=== PATIENT | female | born 1930 | race Caucasian/White ===

== ENCOUNTER 2018-01-03 14:46 | Outpatient (CLI) | payer MEDICARE, OTHER | END 2018-01-03 14:47 | disposition home or self-care (01) | LOC: BICRAD 14:46 | PROVIDERS: ATTEND Physical Medicine & Rehabilitation | DX: M25.511 Pain in right shoulder (principal); M19.011 Primary osteoarthritis, right shoulder ==

== ENCOUNTER 2019-09-26 13:06 | Inpatient (IN) | payer MEDICARE, OTHER ==
[2019-09-26 13:43] LABS: #Eosinphils 0.3 thou/uL (0.0-0.7); #Lymphocytes 1.3 thou/uL (1.20-3.40); #Monocytes 0.6 thou/uL (0.11-0.59); #Neutrophils 4.5 thou/uL (1.40-6.50); %Basophils 0.3 % (0.0-1.0); %Eosinophils 3.9 % (0.0-10.0); %Monocytes 8.6 % (0.0-10.0); %Neutrophils 67.3 % (42.0-75.0); Hemoglobin 9.5 g/dL (12.0-16.0); Mean Corpuscular HGB CONC 32.6 g/dL (32.0-36.0); Mean Corpuscular Hemoglobin 30.1 pg (27.0-31.0); Mean Corpuscular Volume 92.3 fL (78.0-98.0); Mean Platelet Volume 9.4 fL (7.4-10.4); Platelet Count 207 thou/uL (130-400); RBC Distribution Width 12.6 % (11.5-14.5); Red Blood Cell (RBC) Count 3.16 mill/uL (4.20-5.40); White Blood Cell (WBC) Count 6.6 thou/uL (4.8-10.8)
[2019-09-26] MEDS ORDERED: Ondansetron PF 4 MG/2 ML Vial ONE (14:06)
[2019-09-26 14:16] LABS: ALT (SGPT) 18 U/L (8-55); AST (SGOT) 24 U/L (5-34); Albumin 3.9 g/dL (3.4-4.8); Alkaline Phosphatase 72 U/L (40-110); Anion Gap 14 mmol/L (10-20); BUN (Urea Nitrogen) 36 mg/dL (9.8-20.1); Bilirubin, Total 0.3 mg/dL (0.2-1.2); Calc. Creatinine Clearance 0 mL/min (70-130); Calcium 9.1 mg/dL (7.8-10.44); Carbon Dioxide 21 mmol/L (23-31); Chloride 100 mmol/L (98-107); Estimated GFR-MDRD 27; Globulin 3.2 g/dL (2.4-3.5); Glucose 108 mg/dL (83-110); Potassium 4.5 mmol/L (3.5-5.1); Protein, Total 7.1 g/dL (6.0-8.3); Sodium 130 mmol/L (136-145)
--- NOTE | 2019-09-26 14:26 | RAD ---
EXAM: XR Chest 1 View Portable PROVIDED CLINICAL HISTORY: Shortness of breath COMPARISON: 07/15/2015 FINDINGS: Cardiac silhouette appears enlarged. There is obscuration of the left hemidiaphragm and blunting of t he left costophrenic angle. Right lung appears clear. There is no evidence for pneumothorax. IMPRESSION: Left basilar pleural and/or parenchymal opacity. Correlate with concerns for pneumonia. Follow-up rec ommended.
[2019-09-26] MEDS ORDERED: Metoclopramide HCl 10 MG/2 ML VIAL ONE (14:45)
[2019-09-26] MEDS ORDERED: Furosemide 40 MG/4 ML VIAL ONE (14:50)
[2019-09-26] MEDS ORDERED: Furosemide 20 MG/2 ML VIAL SLOW IVP SCH (20:30)
[2019-09-26 21:45] LABS: Troponin I 0.196 ng/mL (< 0.028)
[2019-09-26] MEDS: Zolpidem Tartrate 5 MG TAB PO PRN (21:49)
[2019-09-26] MEDS: Triple Antibiotic Oint 1 GM Packet TOP SCH (21:49)
[2019-09-26] MEDS: Carvedilol 25 MG TAB PO SCH (21:49)
[2019-09-27 00:22] VITALS: BMI 27.8
--- NOTE | 2019-09-27 02:17 | HP ---
CHIEF COMPLAINT: Exacerbation of CHF. 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 She noticed since that surgery that she has begun to have swelling in her lower extremities. 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 However, it was not until the 3rd day when her shoes did not fit and she began to consider doubling her furosemide. By then, it was too late. She began to become dyspneic and came to the emergency room for further evaluation. In the ER, chest x-ray showed an early pleural effusion. Also, her BNP was elevated at 1100. Diuresis began in the emergency room and Dr. Mitchell was called to place her on further diuresis and re-evaluation. PAST MEDICAL HISTORY: As mentioned, she recently underwent squamous cell surgery on her left cheek. She has a history of CHF for which she sees Dr. Felder. She also has a history of dyslipidemia, spinal stenosis, hypertension, medical noncompliance, renal insufficiency due to uncontrolled blood pressure, vitamin D deficiency, hypothyroidism, history right CVA, GERD, chronic cystitis based on recurrent episodes of dehydration. PAST SURGICAL HISTORY: Includes an appendectomy, recent squamous cell skin cancer removal, left cheek. PSYCHIATRIC HISTORY: Negative for depression, suicidal ideation. SOCIAL HISTORY: She is . Denies any smoking, drug use, or alcohol use. She lives alone at home. ALLERGIES: TO SULFA. MEDICATION ON ADMISSION: Includes: 1. Aspirin 81 mg daily. 2. Atorvastatin 10 mg nightly. 3. Levothyroxine 88 mcg daily. 4. Carvedilol 12 mg b.i.d. 5. Vitamin D 4000 IUs daily. 6. Nexium 20 mg daily. 7. She takes Xarelto 15 mg daily. 8. Nitrofurantoin 100 mg daily. 9. Furosemide 20 mg daily, which she is told to double when she has edema. REVIEW OF SYSTEMS: At the time of admission: CONSTITUTIONAL: Denies fever, chills, nausea, vomiting, diarrhea, fatigue or malaise. HEENT: Denies drainage from eyes, ears, nose or throat. CHEST: Admits to shortness of breath with cough. CARDIOVASCULAR: Denies chest pain or palpitations at this time. GI: Denies nausea, vomiting or diarrhea. : Denies dysuria or blood in urine or stool. MUSCULOSKELETAL: Denies any new aches or pains in the major muscle groups or major joints. SKIN: No new lesions aside from the large area of ecchymosis in her postop site from the Xarelto. PSYCHIATRIC: Denies any anxiety, depression at this time. She does admit to some insomnia. ENDOCRINE: She has swelling in the lower extremities, but denies any depression or lymphadenopathy. PHYSICAL EXAMINATION: VITAL SIGNS: Blood pressure 189/78, O2 saturation 100% on 2 L, pain scale 0/10, temperature 98.7, pulse 70, respirations 25 per minute. GENERAL: This is a obese, female, alert, oriented, cooperative with obvious bruising to the left cheek. HEENT: Normocephalic. TMs, nares, and pharynx are clear. The left ocular bridge is nearly swollen shut due to ecchymosis and edema postop. NECK: Supple. Trachea midline. No bruits, no mass. CHEST: With basilar rales, left greater than right. HEART: Regular rate and rhythm. BREAST: Deferred. ABDOMEN: Soft, nontender without hepatosplenomegaly. : Deferred. EXTREMITIES: With 2+ edema in the lower extremities. SKIN: With the aforementioned bruising in the left cheek, otherwise no acute rashes or lesions. NEUROLOGIC: Cranial nerves are intact. Gait and cerebral function are untested. Sensory exam is grossly intact. Reflexes 2+ at knee jerks, Babinski is down. LABORATORY DATA: Sodium 130, potassium 4.5, chloride 100, CO2 21, BUN 36, creatinine 1.7 with GFR 27, glucose 108, calcium 9.6. Liver functions unremarkable. Troponin slightly elevated at 0.07. BNP elevated at 1149.6, WBC 6.6, hemoglobin 9.5, hematocrit 29.2, platelets at 207. TSH is pending. The chest x-ray showed early pleural effusion in the left basilar side. ASSESSMENT: 1. Exacerbation of congestive heart failure. 2. Hypertension. 3. Postoperative left squamous cell removal. 4. Medical noncompliance. 5. Renal insufficiency. PLAN: 1. Continue diuresis, re-evaluate thyroid status. 2. Consultation with Dr. Felder. The patient has recently had an echocardiogram at his office that will not be repeated at this time, serial re-evaluation and serial weight checks. Job ID: [id number] [facility]
[2019-09-27 05:40] LABS: #Eosinphils 0.1 thou/uL (0.0-0.7); #Lymphocytes 1.9 thou/uL (1.20-3.40); #Monocytes 0.9 thou/uL (0.11-0.59); #Neutrophils 4.1 thou/uL (1.40-6.50); %Basophils 0.2 % (0.0-1.0); %Eosinophils 0.8 % (0.0-10.0); %Lymphocytes 26.8 % (21.0-51.0); %Neutrophils 59.2 % (42.0-75.0); Hemoglobin 8.8 g/dL (12.0-16.0); Mean Corpuscular HGB CONC 32.6 g/dL (32.0-36.0); Mean Platelet Volume 9.1 fL (7.4-10.4); Platelet Count 182 thou/uL (130-400); RBC Distribution Width 12.7 % (11.5-14.5); Red Blood Cell (RBC) Count 2.93 mill/uL (4.20-5.40)
[2019-09-27 06:04] LABS: Anion Gap 14 mmol/L (10-20); BUN (Urea Nitrogen) 36 mg/dL (9.8-20.1); Calc. Creatinine Clearance 29 mL/min (70-130); Carbon Dioxide 22 mmol/L (23-31); Cardiac Risk 2.7 (Less than 4.5); Chloride 101 mmol/L (98-107); Cholesterol 111 mg/dl (< 200 Desired); Estimated GFR-MDRD 28; Glucose 81 mg/dL (83-110); HDL Cholesterol 41 mg/dL (>60 Neg Risk); LDL Cholesterol, Calculated 56 mg/dL; Sodium 133 mmol/L (136-145); Triglycerides 68 mg/dL (Less than 150)
--- NOTE | 2019-09-27 07:56 | RAD ---
EXAM: CHEST ONE VIEW HISTORY: CHF exacerbation COMPARISON: 09/26/2019 FINDINGS: Cardiac silhouette remains enlarged. Again, there is obscuration of the left hemidiaphragm and blunti ng of the left lateral costophrenic angle which may represent left pleural and/or parenchymal opacity. This may related to left pleural effusion and atelectasis, but pneumonia at the left lung ba se is a possibility as well. Slight blunting right lateral costophrenic angle is present. Pulmonary vasculature is within normal limits. Chest is overall similar to prior exam. IMPRESSION: 1. Stable chest with left basilar pleural and parenchymal opacity which may represent left pleural ef fusion and atelectasis. However, pneumonia at the left lung base is a possibility. Follow-up recommended. 2. Small right pleural effusion. 3. Cardiomegaly.
--- NOTE | 2019-09-27 08:54 | CON ---
DATE OF CONSULTATION: 09/26/2019 REASON FOR CONSULTATION: Jbtei-uk-magywgy systolic heart failure. CONSULTING PHYSICIAN: Luigi Mitchell MD HISTORY OF PRESENT ILLNESS: Chase is an 89-year-old woman with past history of cardiomyopathy who recently presented with acute onset shortness of breath. States it occurred over the last several days. She recently had squamous cell removal from the left side of her face. She denies chest pain, pressure, or associated symptoms. She states this morning after receiving IV Lasix, she feels much better. PAST MEDICAL HISTORY: Hypertension, hypothyroidism, cystitis with hematuria, hyperlipidemia, chronic sinusitis, gout, chronic kidney disease, chronic atrial fibrillation, diabetes mellitus, surgery as above, appendectomy. FAMILY HISTORY: Negative. SOCIAL HISTORY: No current tobacco or alcohol use. ALLERGIES: NONE. REVIEW OF SYSTEMS: A 10-point review of systems is reviewed as above, otherwise negative. PHYSICAL EXAMINATION: GENERAL: Patient is a pleasant woman who is in no acute distress. The patient appears her stated age. VITAL SIGNS: Blood pressure 142/65, pulse 62, temperature 98.2. NEUROLOGIC: The patient is alert and oriented x3 with no focal neurologic deficits. HEENT: Sclerae without icterus. Mouth has moist mucous membranes with normal pallor. NECK: No JVD. Carotid upstroke brisk. No bruits bilaterally. LUNGS: Clear to auscultation with unlabored respirations. BACK: No scoliosis or kyphosis. CARDIAC: Irregularly irregular. ABDOMEN: Soft, nontender, nondistended. No peritoneal signs present. No hepatosplenomegaly. No abnormal striae. EXTREMITIES: 2+ femoral and 2+ dorsalis pedis pulses. No cyanosis, clubbing, or edema. SKIN: No gross abnormalities. PERTINENT LABORATORY DATA: Hemoglobin 8.8. Creatinine 1.73, sodium 133. Troponin 0.196. BNP of 2592. Most recent echo Doppler dated 08/06/2019 with LVEF 30% to 35%, diastolic dysfunction, aortic valve sclerosis, [id number] AI, moderate MR. IMPRESSION: 1. Trbjj-ew-ohnrpww systolic heart failure. 2. Atrial fibrillation. 3. Diabetes mellitus. 4. Hypertension. RECOMMENDATIONS: It appears Ms. Stone became fluid overloaded. She did have increased weight noted. At this point, we will continue current therapy. Continue low-dose Xarelto for atrial fibrillation. She has received IV Lasix and appears to have marked improvement. We would also continue carvedilol and atorvastatin. She was wearing a LifeVest for LVEF 30% to 35%. She has returned the LifeVest. She is not interested in pursuing more aggressive treatment and not interested in pursuing continued LifeVest. She will prior need to be in the hospital for another 1 to 2 days that she diuresis. RIAZ inhibitor therapy and ARB are contraindicated due to renal insufficiency. Job ID: [id number]
[2019-09-27 08:55] LABS: Hemoglobin 8.8 g/dL (12.0-16.0); Mean Corpuscular HGB CONC 32.7 g/dL (32.0-36.0); Mean Corpuscular Hemoglobin 30.1 pg (27.0-31.0); Mean Corpuscular Volume 92.1 fL (78.0-98.0); Mean Platelet Volume 8.8 fL (7.4-10.4); Platelet Count 192 thou/uL (130-400); RBC Distribution Width 12.7 % (11.5-14.5); Red Blood Cell (RBC) Count 2.92 mill/uL (4.20-5.40); White Blood Cell (WBC) Count 8.3 thou/uL (4.8-10.8)
[2019-09-27] MEDS ORDERED: Atorvastatin Calcium 10 MG TAB PO SCH (09:00)
[2019-09-27 09:16] LABS: Anion Gap 14 mmol/L (10-20); BUN (Urea Nitrogen) 39 mg/dL (9.8-20.1); Calc. Creatinine Clearance 26 mL/min (70-130); Calcium 8.9 mg/dL (7.8-10.44); Carbon Dioxide 24 mmol/L (23-31); Chloride 100 mmol/L (98-107); Estimated GFR-MDRD 24; Glucose 134 mg/dL (83-110); Sodium 134 mmol/L (136-145)
[2019-09-27] MEDS: Levothyroxine Sodium 88 MCG TAB PO SCH (09:19)
[2019-09-27] MEDS: Carvedilol 25 MG TAB PO SCH (09:20)
[2019-09-27] MEDS: Metolazone 5 MG TAB PO SCH (09:20)
[2019-09-27] MEDS: Nitrofurantoin Monohyd/M-Cryst 100 MG CAP PO SCH (09:20)
[2019-09-27] MEDS: Aspirin Chewable 81 MG TAB PO SCH (09:22)
[2019-09-27] MEDS: Triple Antibiotic Oint 1 GM Packet TOP SCH ×2 (09:24→21:34)
[2019-09-27] MEDS: Rivaroxaban 15 MG TAB PO SCH (17:41)
[2019-09-27] MEDS: Zolpidem Tartrate 5 MG TAB PO PRN (21:34)
[2019-09-27] MEDS: Atorvastatin Calcium 10 MG TAB PO SCH (21:34)
[2019-09-28 05:13] LABS: #Eosinphils 0.4 thou/uL (0.0-0.7); #Lymphocytes 1.8 thou/uL (1.20-3.40); #Neutrophils 4.3 thou/uL (1.40-6.50); %Basophils 0.3 % (0.0-1.0); %Lymphocytes 24.5 % (21.0-51.0); %Monocytes 12.7 % (0.0-10.0); %Neutrophils 57.6 % (42.0-75.0); Hemoglobin 8.3 g/dL (12.0-16.0); Mean Corpuscular HGB CONC 31.5 g/dL (32.0-36.0); Mean Corpuscular Hemoglobin 29.5 pg (27.0-31.0); Mean Corpuscular Volume 93.4 fL (78.0-98.0); Mean Platelet Volume 8.8 fL (7.4-10.4); Platelet Count 172 thou/uL (130-400); RBC Distribution Width 12.7 % (11.5-14.5); Red Blood Cell (RBC) Count 2.82 mill/uL (4.20-5.40); White Blood Cell (WBC) Count 7.5 thou/uL (4.8-10.8)
[2019-09-28 05:34] LABS: Anion Gap 11 mmol/L (10-20); BUN (Urea Nitrogen) 44 mg/dL (9.8-20.1); Calc. Creatinine Clearance 23 mL/min (70-130); Calcium 8.8 mg/dL (7.8-10.44); Carbon Dioxide 26 mmol/L (23-31); Chloride 99 mmol/L (98-107); Estimated GFR-MDRD 22; Glucose 94 mg/dL (83-110); Potassium 4.1 mmol/L (3.5-5.1); Sodium 132 mmol/L (136-145)
[2019-09-28] MEDS ORDERED: Carvedilol 25 MG TAB PO SCH (09:00)
[2019-09-28] MEDS: Levothyroxine Sodium 88 MCG TAB PO SCH (09:03)
[2019-09-28] MEDS: Metolazone 5 MG TAB PO SCH (09:04)
[2019-09-28] MEDS: Nitrofurantoin Monohyd/M-Cryst 100 MG CAP PO SCH (09:07)
[2019-09-28] MEDS: Aspirin Chewable 81 MG TAB PO SCH (09:07)
[2019-09-28] MEDS: Triple Antibiotic Oint 1 GM Packet TOP SCH ×2 (09:16→20:47)
[2019-09-28] MEDS ORDERED: Carvedilol 3.125 MG TAB PO SCH (11:30)
[2019-09-28] MEDS ORDERED: Furosemide 40 MG/4 ML VIAL IVP SCH (13:30)
--- NOTE | 2019-09-28 14:09 | PRG ---
DATE OF SERVICE: 09/28/2019 SUBJECTIVE: Ms. Stone is doing better. She has less shortness of breath. Her hemoglobin did decrease slightly. OBJECTIVE: GENERAL: Patient is a pleasant lady who is in no acute distress. The patient appears their stated age. VITAL SIGNS: Blood pressure 180/78, pulse 66, and temperature 98.1. NEUROLOGIC: The patient is alert and oriented x3 with no focal neurologic deficits. HEENT: Sclerae without icterus. Mouth has moist mucous membranes with normal pallor. NECK: No JVD. Carotid upstroke brisk. No bruits bilaterally. LUNGS: Crackles noted bilaterally at bases. BACK: No scoliosis or kyphosis. CARDIAC: Irregularly irregular. ABDOMEN: Soft, nontender, nondistended. No peritoneal signs present. No hepatosplenomegaly. No abnormal striae. EXTREMITIES: 2+ femoral and 2+ dorsalis pedis pulses. No cyanosis, clubbing, or edema. SKIN: No gross abnormalities. PERTINENT LABORATORY DATA: Hemoglobin 8.3. Creatinine 2.13 up from 1.96. IMPRESSION: 1. Mugxv-jm-ifwndmx systolic heart failure. 2. Chronic anemia. 3. Chronic renal insufficiency. RECOMMENDATIONS: Again, I discussed goals with Ms. Stone as well as her daughter, Susanna, on aggressive versus conservative therapy. We have all agreed to proceed with a more conservative approach given her anemia, renal insufficiency, advanced age, and cardiomyopathy. Would continue with diuresis, keeping a close eye on her creatinine. Her anemia is likely related to chronic kidney disease and not from an acute blood loss. Would recommend guaiac in her stools. Would continue atorvastatin. I have decreased her carvedilol from 25 b.i.d. to 3.125 b.i.d. due to episodes of bradycardia. We will titrate up if needed. May consider changing a Lasix to p.o. tomorrow. Discontinue metolazone in place of Lasix for now. Avoid RIAZ inhibitor therapy and ARB due to renal insufficiency. Continue Xarelto. Job ID: [id number]
[2019-09-28] MEDS: Rivaroxaban 15 MG TAB PO SCH (16:06)
[2019-09-28] MEDS: Carvedilol 3.125 MG TAB PO SCH (16:06)
[2019-09-28] MEDS ORDERED: Amlodipine 5 MG TAB PO SCH (19:45)
[2019-09-28] MEDS: Atorvastatin Calcium 10 MG TAB PO SCH (20:47)
[2019-09-28] MEDS: Zolpidem Tartrate 5 MG TAB PO PRN (21:41)
[2019-09-29 04:37] LABS: #Basophils 0.1 thou/uL (0.0-0.2); #Eosinphils 0.3 thou/uL (0.0-0.7); #Lymphocytes 1.7 thou/uL (1.20-3.40); #Neutrophils 4.3 thou/uL (1.40-6.50); %Basophils 0.9 % (0.0-1.0); %Eosinophils 4.6 % (0.0-10.0); %Lymphocytes 23.1 % (21.0-51.0); %Neutrophils 58.3 % (42.0-75.0); Hemoglobin 9.2 g/dL (12.0-16.0); Mean Corpuscular HGB CONC 31.3 g/dL (32.0-36.0); Mean Corpuscular Hemoglobin 28.7 pg (27.0-31.0); Mean Corpuscular Volume 91.7 fL (78.0-98.0); Mean Platelet Volume 8.8 fL (7.4-10.4); Platelet Count 204 thou/uL (130-400); RBC Distribution Width 12.6 % (11.5-14.5); Red Blood Cell (RBC) Count 3.18 mill/uL (4.20-5.40); White Blood Cell (WBC) Count 7.4 thou/uL (4.8-10.8)
[2019-09-29 04:48] LABS: Anion Gap 13 mmol/L (10-20); BUN (Urea Nitrogen) 47 mg/dL (9.8-20.1); Calc. Creatinine Clearance 26 mL/min (70-130); Calcium 9.2 mg/dL (7.8-10.44); Carbon Dioxide 28 mmol/L (23-31); Chloride 95 mmol/L (98-107); Estimated GFR-MDRD 24; Glucose 92 mg/dL (83-110); Potassium 3.7 mmol/L (3.5-5.1); Sodium 132 mmol/L (136-145)
[2019-09-29] MEDS: Nitrofurantoin Monohyd/M-Cryst 100 MG CAP PO SCH (09:27)
[2019-09-29] MEDS: Amlodipine 5 MG TAB PO SCH (09:27)
[2019-09-29] MEDS: Levothyroxine Sodium 88 MCG TAB PO SCH (09:27)
[2019-09-29] MEDS: Aspirin Chewable 81 MG TAB PO SCH (09:27)
[2019-09-29] MEDS: Carvedilol 3.125 MG TAB PO SCH ×2 (09:27→16:04)
[2019-09-29] MEDS: Triple Antibiotic Oint 1 GM Packet TOP SCH ×2 (10:04→20:05)
--- NOTE | 2019-09-29 13:36 | PDOC.CPN ---
- Subjective Date: 09/29/19 Time: 13:00 Interval history: No overnight events. BP remains high. Norvasc added today. - Review of Systems General: denies: fever/chills, weight/appetite/sleep changes, night sweats, fatigue Respiratory: denies: cough, congestion, shortness of breath, exercise intolerance Cardiovascular: denies: chest pain, palpitation, edema, paroxysmal nocturnal dyspnea, orthopnea Gastrointestinal: denies: nausea, vomiting, diarrhea, constipation, abd pain, GI bleeding Musculoskeletal: denies: pain, tenderness, stiffness, swelling, arthritis/ arthralgias Neurological: denies: numbness, syncope, seizure, weakness - Objective Allergies/Adverse Reactions: Allergies Allergy/AdvReac Type Severity Reaction Status Date / Time Penicillins Allergy Hives Verified 09/26/19 21:36 Sulfa (Sulfonamide Allergy Emesis Verified 09/26/19 21:36 Antibiotics) Visit Medications: Current Medications Amlodipine Besylate (Norvasc) 5 mg PO QAM [facility] Last Admin: 09/29/19 09:27 Dose: 5 mg Aspirin (Aspirin Chewable) 81 mg PO DAILY [facility] Last Admin: 09/29/19 09:27 Dose: 81 mg Atorvastatin Calcium (Lipitor) 10 mg PO HS [facility] Last Admin: 09/28/19 20:47 Dose: 10 mg Carvedilol (Coreg) 3.125 mg PO BID-[facility] Last Admin: 09/29/19 09:27 Dose: 3.125 mg Levothyroxine Sodium (Synthroid) 88 mcg PO DAILY-[facility] Last Admin: 09/29/19 09:27 Dose: 88 mcg Neomycin/Polymyxin/Bacitracin (Triple Antibiotic) 1 gm TOP BID [facility] Last Admin: 09/29/19 10:04 Dose: 1 gm Nitrofurantoin Macrocrystals (Macrobid) 100 mg PO QAM [facility] Last Admin: 09/29/19 09:27 Dose: 100 mg Pantoprazole Sodium (Protonix) 40 mg PO DAILY [facility] Last Admin: 09/29/19 09:27 Dose: 40 mg Rivaroxaban (Xarelto) 15 mg PO QPM-[facility] Last Admin: 09/28/19 16:06 Dose: 15 mg Sodium Chloride (Flush - Normal Saline) 10 ml IVF PRN PRN PRN Reason: Saline Flush Last Admin: 09/27/19 09:18 Dose: 10 ml Zolpidem Tartrate (Ambien) 5 mg PO HSPRN PRN PRN Reason: Insomnia Last Admin: 09/28/19 21:41 Dose: 5 mg Vital Signs & Weight: Vital Signs Temp Pulse Resp BP Pulse Ox 09/29/19 11:19 97.8 F 63 16 177/76 H 97 09/29/19 08:15 93 L 09/29/19 08:00 96.6 F L 68 16 176/74 H 93 L 09/29/19 03:40 98.2 F 66 17 162/65 H 93 L Weight 172 lb 14.4 oz - Physical Exam General: no apparent distress HEENT: mucus membranes moist Neck: supple neck Cardiac: regular rate and rhythm Lungs: normal breath sounds Neuro: grossly intact Abdomen: soft Extremities: other: (Mild LILO) Musculoskeletal: no pain - Labs Result Diagrams: 09/29/19 04:06 09/29/19 04:06 Troponin/CKMB Troponin I 0.196 ng/mL (< 0.028) H 09/26/19 21:02 - Assessment/Plan Assessment/Plan: 1. Acute on chronic combined CHF 2. Chronic atrial fibrillation 3. Chronic anemia 4. HTN Agree with norvasc. May need to increase dosage or consider nitrates. Slow improvement. RG-Pt seen and examined; agree with the above assessment Change IV lasix to PO BP med changes as above Conservative treatment
[2019-09-29] MEDS ORDERED: Isosorbide Mononitrate (ER) 30 MG TAB PO SCH (15:00)
[2019-09-29] MEDS: Acetaminophen 325 MG TAB PO PRN (16:04)
[2019-09-29] MEDS: Rivaroxaban 15 MG TAB PO SCH (16:04)
[2019-09-29] MEDS: Atorvastatin Calcium 10 MG TAB PO SCH (20:05)
[2019-09-29] MEDS: Zolpidem Tartrate 5 MG TAB PO PRN (20:06)
[2019-09-30 07:39] LABS: #Eosinphils 0.2 thou/uL (0.0-0.7); #Lymphocytes 1.1 thou/uL (1.20-3.40); #Monocytes 0.9 thou/uL (0.11-0.59); #Neutrophils 5.6 thou/uL (1.40-6.50); %Basophils 0.3 % (0.0-1.0); %Eosinophils 2.6 % (0.0-10.0); %Lymphocytes 14.4 % (21.0-51.0); %Monocytes 11.7 % (0.0-10.0); Hemoglobin 8.7 g/dL (12.0-16.0); Mean Corpuscular HGB CONC 32.5 g/dL (32.0-36.0); Mean Corpuscular Hemoglobin 29.7 pg (27.0-31.0); Mean Corpuscular Volume 91.6 fL (78.0-98.0); Platelet Count 188 thou/uL (130-400); RBC Distribution Width 12.6 % (11.5-14.5); Red Blood Cell (RBC) Count 2.93 mill/uL (4.20-5.40); White Blood Cell (WBC) Count 7.8 thou/uL (4.8-10.8)
[2019-09-30 08:02] LABS: Anion Gap 14 mmol/L (10-20); BUN (Urea Nitrogen) 50 mg/dL (9.8-20.1); Calc. Creatinine Clearance 25 mL/min (70-130); Carbon Dioxide 26 mmol/L (23-31); Chloride 95 mmol/L (98-107); Estimated GFR-MDRD 24; Glucose 104 mg/dL (83-110); Potassium 3.7 mmol/L (3.5-5.1); Sodium 131 mmol/L (136-145)
[2019-09-30] MEDS ORDERED: Isosorbide Mononitrate (ER) 30 MG TAB PO SCH (09:00)
[2019-09-30] MEDS: Levothyroxine Sodium 88 MCG TAB PO SCH (09:13)
[2019-09-30] MEDS: Carvedilol 3.125 MG TAB PO SCH ×2 (09:13→17:20)
[2019-09-30] MEDS: Nitrofurantoin Monohyd/M-Cryst 100 MG CAP PO SCH (09:13)
[2019-09-30] MEDS: Amlodipine 5 MG TAB PO SCH (09:13)
[2019-09-30] MEDS: Acetaminophen 325 MG TAB PO PRN (09:13)
[2019-09-30] MEDS: Triple Antibiotic Oint 1 GM Packet TOP SCH (09:14)
[2019-09-30] MEDS: Aspirin Chewable 81 MG TAB PO SCH (09:14)
[2019-09-30] MEDS ORDERED: Furosemide 20 MG TAB PO SCH (11:30)
[2019-09-30] MEDS ORDERED: Zolpidem Tartrate 5 MG TAB PO PRN (12:11)
[2019-09-30] MEDS ORDERED: HYDROcodone/Acetaminophen 5/325 mg Tablet PO PRN (12:13)
--- NOTE | 2019-09-30 12:28 | PDOC.CPN ---
- Subjective Date: 09/30/19 Time: 12:19 Interval history: Patient without complaints. resting comfortably. No overnight events. - Review of Systems General: denies: fever/chills, weight/appetite/sleep changes, night sweats, fatigue Respiratory: denies: cough, congestion, shortness of breath, exercise intolerance Cardiovascular: denies: chest pain, palpitation, edema, paroxysmal nocturnal dyspnea, orthopnea Musculoskeletal: denies: pain, tenderness, stiffness, swelling, arthritis/ arthralgias Neurological: reports: weakness - Objective Allergies/Adverse Reactions: Allergies Allergy/AdvReac Type Severity Reaction Status Date / Time Penicillins Allergy Hives Verified 09/26/19 21:36 Sulfa (Sulfonamide Allergy Emesis Verified 09/26/19 21:36 Antibiotics) Visit Medications: Current Medications Acetaminophen (Tylenol) 650 mg PO Q4H PRN PRN Reason: Pain Last Admin: 09/30/19 09:13 Dose: 650 mg Hydrocodone Bitart/Acetaminophen ([place] 5/325) 1 tab PO Q6H PRN PRN Reason: Pain Amlodipine Besylate (Norvasc) 5 mg PO QAM [facility] Last Admin: 09/30/19 09:13 Dose: 5 mg Aspirin (Aspirin Chewable) 81 mg PO DAILY [facility] Last Admin: 09/30/19 09:14 Dose: 81 mg Atorvastatin Calcium (Lipitor) 10 mg PO HS [facility] Last Admin: 09/29/19 20:05 Dose: 10 mg Carvedilol (Coreg) 3.125 mg PO BID-WM [facility] Last Admin: 09/30/19 09:13 Dose: 3.125 mg Furosemide (Lasix) 20 mg PO DAILY [facility] Furosemide (Lasix) 20 mg PO NOW [facility] Stop: 09/30/19 13:30 Last Admin: 09/30/19 11:41 Dose: 20 mg Isosorbide Mononitrate (Imdur Er) 30 mg PO DAILY [facility] Last Admin: 09/30/19 09:12 Dose: 30 mg Levothyroxine Sodium (Synthroid) 88 mcg PO DAILY-AC [facility] Last Admin: 09/30/19 09:13 Dose: 88 mcg Neomycin/Polymyxin/Bacitracin (Triple Antibiotic) 1 gm TOP BID [facility] Last Admin: 09/30/19 09:14 Dose: 1 gm Nitrofurantoin Macrocrystals (Macrobid) [facility] Last Admin: 09/30/19 09:13 Dose: 100 mg Pantoprazole Sodium (Protonix) 40 mg PO DAILY [facility] Last Admin: 09/30/19 09:13 Dose: 40 mg Rivaroxaban (Xarelto) 15 mg PO QPM-WM [facility] Last Admin: 09/29/19 16:04 Dose: 15 mg Sodium Chloride (Flush - Normal Saline) 10 ml IVF PRN PRN PRN Reason: Saline Flush Last Admin: 09/27/19 09:18 Dose: 10 ml Zolpidem Tartrate (Ambien) 10 mg PO HSPRN PRN PRN Reason: Insomnia Vital Signs & Weight: Vital Signs Temp Pulse Resp BP BP Pulse Ox 09/30/19 11:24 98.4 F 60 18 150/65 H 97 09/30/19 07:43 97.8 F 65 18 165/72 H 98 09/30/19 03:31 98.3 F 58 L 18 156/67 H 99 Weight 172 lb 6.4 oz - Physical Exam General: alert & oriented x3, appears well HEENT: mucus membranes moist Neck: supple neck Cardiac: other (IRR iRR) Lungs: clear to auscultation Neuro: grossly intact Abdomen: soft, non-tender Skin: clear Musculoskeletal: no pain - Labs Result Diagrams: 09/30/19 07:14 09/30/19 07:14 Troponin/CKMB Troponin I 0.196 ng/mL (< 0.028) H 09/26/19 21:02 - Assessment/Plan Assessment/Plan: 1. Acute on chronic combined CHF 2. Chronic atrial fibrillation 3. Chronic anemia 4. HTN Add po lasix daily. Continued slow improvement.
[2019-09-30 15:21] VITALS: BP 138/72; TEMP 97.8
[2019-09-30] MEDS: Rivaroxaban 15 MG TAB PO SCH (17:20)
[2019-10-01] MEDS ORDERED: Furosemide 20 MG TAB PO SCH (09:00)
--- NOTE | 2019-10-02 06:11 | PQF ---
[employer] Supervisor [employer] Reports Winform Viewer LUCIANO ARITA RICARDO MD [id number] CLINICAL DOCUMENTATION CLARIFICATION FORM: POST DISCHARGE Addendum to original discharge summary date: ____ Late entry note date: __ DATE: 10/02/19 ATTN: Mustapha Felder Please exercise your independent, professional judgment in responding to the clarification form. Clinical indicators are provided on the bottom of this form for your review Can you please further clarify the diagnosis of the patient? Please check appropriate box(s): [ ] NSTEMI type 1 [ ] NSTEMI type 2 due to CHF exacerbation [ ] Demand ischemia without NM [ ] Abnormal EKG findings [ ] Other diagnosis [ ] Unable to determine In addition, please specify: Present on Admission (POA): [ ] Yes [ ] No [ ] Unable to determine CLINICAL INDICATORS - SIGNS / SYMPTOMS / LABS Chief complaint- Exacerbation of CHF H and P pg.2- Cardiovascular: Denies chest pain or palpitation ED Provider pg.3- EKG, nonspecific ST and T wave abnormalities Laboratory- Troponin 0.017, 0.070H, 0.196H Vital Signs 09/25: Pulse=76 Respi=28 KL=692/[id number] RISKS: Medical non compliance- H and P pg.3 Acute on chronic systolic CHF- Consult pg.1 Chronic atrial fib- PN pg.3 HTN- PN pg.3 89 years old female HP 09/25 HLD HP 09/25 CKD Consult 09/25 DM Consult 09/25 TREATMENTS: Cardiology Consult Dr. Felder 09/26 Chest X ray 09/25 Troponin Monitoring- Labs Aspirin 81mg PO- MAR Carvedilol 3.125mg PO- MAR IV fluids- MAR EKG ED Notes 09/26 (This form is maintained as a part of the permanent medical record) 2014 [employer]. All Rights Reserved Charly RAMSES
== END 2019-09-30 18:45 | disposition home or self-care (01) | DRG 291 ==
LOC: ERS 13:06 → 2SE 15:01 → OBSVTOIN 09-27 18:12 → 2NO 09-28 20:18
PROVIDERS: ADMIT Specialist; ATTEND Specialist
DX: I13.0 Hypertensive heart and chronic kidney disease with heart failure and stage 1 through stage 4 chronic kidney disease, or unspecified chronic kidney disease (principal); I50.43 Acute on chronic combined systolic (congestive) and diastolic (congestive) heart failure; I48.20 Chronic atrial fibrillation, unspecified; N18.9 Chronic kidney disease, unspecified; E78.5 Hyperlipidemia, unspecified; E03.9 Hypothyroidism, unspecified; D63.1 Anemia in chronic kidney disease; E11.22 Type 2 diabetes mellitus with diabetic chronic kidney disease; K21.9 Gastro-esophageal reflux disease without esophagitis; Z86.73 Personal history of transient ischemic attack (TIA), and cerebral infarction without residual deficits; Z91.14 Patient's other noncompliance with medication regimen; Z88.2 Allergy status to sulfonamides; Z79.82 Long term (current) use of aspirin; Z79.890 Hormone replacement therapy; Z79.899 Other long term (current) drug therapy; Z90.49 Acquired absence of other specified parts of digestive tract; Z88.0 Allergy status to penicillin
CPT/HCPCS: 36415; 71045; 80048; 80053; 80061; 83880; 84443; 84484; 85025; 93005; 93798; 96365; 96375; J1940; J2405; J2765

== ENCOUNTER 2019-10-10 03:05 | Emergency (ER) | payer MEDICARE, OTHER ==
[2019-10-10 03:40] LABS: #Eosinphils 0.2 thou/uL (0.0-0.7); #Lymphocytes 1.5 thou/uL (1.20-3.40); #Monocytes 0.7 thou/uL (0.11-0.59); #Neutrophils 4.7 thou/uL (1.40-6.50); %Basophils 0.5 % (0.0-1.0); %Eosinophils 2.6 % (0.0-10.0); %Lymphocytes 21.1 % (21.0-51.0); %Monocytes 9.8 % (0.0-10.0); %Neutrophils 66.1 % (42.0-75.0); Hemoglobin 8.9 g/dL (12.0-16.0); Mean Corpuscular HGB CONC 33.7 g/dL (32.0-36.0); Mean Corpuscular Hemoglobin 29.5 pg (27.0-31.0); Mean Corpuscular Volume 87.5 fL (78.0-98.0); Mean Platelet Volume 8.8 fL (7.4-10.4); Platelet Count 252 thou/uL (130-400); RBC Distribution Width 12.8 % (11.5-14.5); Red Blood Cell (RBC) Count 3.03 mill/uL (4.20-5.40); White Blood Cell (WBC) Count 7.1 thou/uL (4.8-10.8)
[2019-10-10 04:00] LABS: ALT (SGPT) Less than 7 U/L (8-55); AST (SGOT) 17 U/L (5-34); Albumin 4.1 g/dL (3.4-4.8); Alkaline Phosphatase 75 U/L (40-110); Anion Gap 15 mmol/L (10-20); BUN (Urea Nitrogen) 35 mg/dL (9.8-20.1); Bilirubin, Total 0.5 mg/dL (0.2-1.2); Calc. Creatinine Clearance 0 mL/min (70-130); Calcium 9.4 mg/dL (7.8-10.44); Carbon Dioxide 24 mmol/L (23-31); Chloride 88 mmol/L (98-107); Estimated GFR-MDRD 24; Globulin 3.2 g/dL (2.4-3.5); Glucose 114 mg/dL (83-110); Potassium 3.9 mmol/L (3.5-5.1); Protein, Total 7.3 g/dL (6.0-8.3); Sodium 123 mmol/L (136-145)
[2019-10-10] MEDS ORDERED: Ondansetron PF 4 MG/2 ML Vial ONE (04:11)
[2019-10-10 04:24] LABS: CKMB 0.8 ng/mL (0-6.6)
--- NOTE | 2019-10-10 07:55 | RAD ---
RADIOGRAPH CHEST 1 VIEW: DATE: 10/10/2019 TIME: 3:28 AM HISTORY: 89-year-old female with dyspnea COMPARISON: 09/27/2019 FINDINGS: Cardiomegaly remains. Interval decrease in volume of bilateral small pleural effusions, left greater than right. Interval improvement in consolidation at basilar segments of left lower lobe, but some consolidation persists. No pulmonary edema or pneumothorax. IMPRESSION: 1. Cardiomegaly. 2. Interval improvement in small bilateral pleural effusions. 3. Interval improvement in left lower lobe consolidation (atelectasis versus pneumonia)
--- NOTE | 2019-10-13 11:55 | EKG ---
Test Reason : Blood Pressure : / mmHG Vent. Rate : 073 BPM Atrial Rate : 089 BPM P-R Int : 000 ms QRS Dur : 104 ms QT Int : 382 ms P-R-T Axes : 000 049 194 degrees QTc Int : 420 ms Atrial fibrillation Abnormal ECG Confirmed by BHANU AMBROSIO ([id number]), non linear editor BARTOLOME NUÑEZ ([id number]) on 10/13/2019 11:55:26 AM Referred By: Confirmed By:BHANU AMBROSIO
== END 2019-10-10 06:00 | disposition home or self-care (01) ==
LOC: ERS 03:05
DX: R06.00 Dyspnea, unspecified (principal); R11.0 Nausea; I11.0 Hypertensive heart disease with heart failure; I50.9 Heart failure, unspecified; E78.5 Hyperlipidemia, unspecified; E78.00 Pure hypercholesterolemia, unspecified; I48.91 Unspecified atrial fibrillation; Z79.899 Other long term (current) drug therapy; Z79.891 Long term (current) use of opiate analgesic; Z79.82 Long term (current) use of aspirin
CPT/HCPCS: 71045; 80053; 82553; 83880; 84484; 85025; 93005; 96374; J2405

== ENCOUNTER 2019-10-15 17:17 | Inpatient (IN) | payer MEDICARE, OTHER ==
[2019-10-15 17:58] LABS: #Eosinphils 0.2 thou/uL (0.0-0.7); #Neutrophils 7.8 thou/uL (1.40-6.50); %Basophils 0.2 % (0.0-1.0); %Lymphocytes 10.4 % (21.0-51.0); %Monocytes 9.6 % (0.0-10.0); %Neutrophils 77.9 % (42.0-75.0); Hemoglobin 8.5 g/dL (12.0-16.0); Mean Corpuscular HGB CONC 33.9 g/dL (32.0-36.0); Mean Corpuscular Hemoglobin 29.4 pg (27.0-31.0); Mean Corpuscular Volume 86.7 fL (78.0-98.0); Mean Platelet Volume 7.9 fL (7.4-10.4); Platelet Count 276 thou/uL (130-400)
[2019-10-15 18:28] LABS: ALT (SGPT) 11 U/L (8-55); AST (SGOT) 18 U/L (5-34); Albumin 4.1 g/dL (3.4-4.8); Alkaline Phosphatase 87 U/L (40-110); Anion Gap 12 mmol/L (10-20); BUN (Urea Nitrogen) 37 mg/dL (9.8-20.1); Bilirubin, Total 0.5 mg/dL (0.2-1.2); Calc. Creatinine Clearance 0 mL/min (70-130); Calcium 9.8 mg/dL (7.8-10.44); Carbon Dioxide 26 mmol/L (23-31); Chloride 92 mmol/L (98-107); Estimated GFR-MDRD 23; Globulin 3.4 g/dL (2.4-3.5); Glucose 148 mg/dL (83-110); Potassium 4.1 mmol/L (3.5-5.1); Protein, Total 7.5 g/dL (6.0-8.3); Sodium 126 mmol/L (136-145)
--- NOTE | 2019-10-15 18:30 | RAD ---
PORTABLE CHEST ONE VIEWs: 10/15/19 at 6:14 p.m. HISTORY: Shortness of breath and chest pain. COMPARISON: 10/10/19. FINDINGS/IMPRESSION: The heart size is mildly enlarged. There is consolidation of the left lung base with accompanying sma ll bilateral pleural effusions. No pneumothoraces are seen. POS: OFF
[2019-10-15] MEDS ORDERED: Furosemide 40 MG/4 ML VIAL ONE (18:42)
[2019-10-15 19:04] LABS: Bilirubin Negative (Negative); Blood, Urine Trace (Negative); Clarity Clear (Clear); Glucose, Urine (Dipstick) Normal (Negative); Leukocyte Negative Leu/uL (Negative); Nitrite Negative (Negative); Protein, Urine (Dipstick) 100 mg/dL (Neg-Trace); RBC/HPF 0-3 HPF (0-3); Squamous Epithelial 0-3 HPF (0-3); Urobilinogen Normal mg/dL (Less than 2); WBC/HPF 0-3 HPF (0-3)
[2019-10-15] MEDS ORDERED: Lorazepam 2 MG/ML VIAL ONE (19:08)
[2019-10-15] MEDS ORDERED: Ondansetron PF 4 MG/2 ML Vial ONE (19:08)
[2019-10-15 19:22] LABS: Bacteria/HPF 1+ HPF (None Seen)
[2019-10-15] MEDS ORDERED: Nitroglycerin 2% Ointment 1 INCH/1 GM Packet ONE (19:28)
[2019-10-15] MEDS ORDERED: Cefepime 2 GM VIAL ONE (19:28)
[2019-10-15] MEDS ORDERED: Vancomycin 1 GM/200 ML BAG ONE (19:50)
[2019-10-15 21:27] LABS: Troponin I 0.027 ng/mL (< 0.028)
[2019-10-15] MEDS ORDERED: Atorvastatin Calcium 10 MG TAB PO SCH (22:20)
[2019-10-15] MEDS ORDERED: Rivaroxaban 15 MG TAB PO SCH (22:20)
[2019-10-15] MEDS ORDERED: Acetaminophen 325 MG TAB PO PRN (22:20)
[2019-10-15] MEDS ORDERED: Cefepime 2 GM in Sodium Chloride 0.9% 100 ML IVPB SCH ×2 (22:30→23:59)
[2019-10-15] MEDS ORDERED: Sodium Chloride 0.45% 1,000 ML IV SCH (22:30)
[2019-10-15 22:43] VITALS: BMI 30.4
[2019-10-15] MEDS: Nitroglycerin 2% Ointment 1 INCH/1 GM Packet TOP SCH (23:00)
[2019-10-15] MEDS: Vancomycin 1 GM in Premix Bag 1 BAG IVPB SCH ×2 (23:00→23:31)
[2019-10-15] MEDS: Furosemide 100 mg/100 ml in NS IVPB SCH (23:01)
[2019-10-15] MEDS ORDERED: Zolpidem Tartrate 5 MG TAB PO PRN (23:02)
--- NOTE | 2019-10-16 01:40 | HP ---
CHIEF COMPLAINT: Dyspnea and left lower lobe pneumonia. HISTORY OF PRESENT ILLNESS: The patient is an 89-year-old female who was admitted in September for exacerbation of congestive heart failure. She eventually was able to go home and on her transitional care visit was doing well. On this particular time , she was becoming weaker and weaker over the last several days. Her daughters noticed that in the last 2 days she was very weak. Finally when she had to get up and go to the bathroom on the day of admission, she got very short winded and could barely make it to and from her restroom. There has been no cough, no fever, but this concerned the daughter enough to call the chute boss and the a&p technician and finally it was suggested that she come to the emergency room for further evaluation. In the emergency room, she was noted to have a BNP over 1100 and a chest x-ray revealing consolidation of the left lung base with bilateral effusions. Diuresis was attempted in the emergency room and was not successful. The patient remained dyspneic and in fact got worse in the ER, requiring BiPAP to become comfortable. The patient then made a point that she did not want to be intubated. At this time, Dr. Mitchell was contacted about admitting the patient for further treatment for both an exacerbation of CHF and a left lower lobe [id number]. PAST MEDICAL HISTORY: Significant for the aforementioned exacerbation of CHF. 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 The patient has a long history of general medical noncompliance with followup visits and medication. PAST SURGICAL HISTORY: Includes appendectomy and squamous cell skin cancer removal on her left cheek. PSYCHIATRIC HISTORY: Negative for depression, suicidal ideation, or any psychiatric illnesses aside from anxiety. ALLERGIES: SULFA. Levafloxin (multiple side effects), PCN MEDICATIONS ON ADMISSION: Include: 1. Xarelto 15 mg daily. 2. Nitrofurantoin 50 mg daily. 3. Levothyroxine 88 mcg daily. 4. Imdur 30 mg daily. 5. Furosemide 20 mg as needed for edema. 6. Nexium 20 mg. 7. Vitamin D supplement. 8. Carvedilol 3.125 mg twice daily. 9. Atorvastatin 10 mg at bedtime. 10. 81 mg of aspirin daily. 11. Amlodipine 5 mg in the morning. 12. Tylenol as needed for arthritis and pain. REVIEW OF SYSTEMS: GENERAL: Fatigue and weakness. Denying fever or chills. HEENT: Denies drainage or congestion in head, ears, eyes, nose, or throat. CHEST: Significant for dyspnea even with minimal exertion. Negative for cough. CARDIOVASCULAR: Denies palpitations or chest pain. ABDOMEN: Denies nausea, vomiting, or diarrhea. : Has dysuria and urinary frequency. Denies blood in urine or stool. MUSCULOSKELETAL: Significant for general weakness, but no recent falls or trauma. SKIN: Significant for healing left skin surgery. No new bruising or lesions. NEUROLOGIC: No trouble with mentation, headaches. PHYSICAL EXAMINATION: VITAL SIGNS: On admission, revealed 180/95 with a pulse of 95, O2 saturation at 96% on BiPAP, respirations is 16. GENERAL: This is an elderly pale, weak, female, alert, oriented, cooperative. HEENT: Normocephalic with old bruising to the left cheek going parallel to her neck. Pupils at 1-2 mm with diminished reactivity to light. Arcus senilis bilaterally. TMs, nares, and pharynx are clear. CHEST: With rales on the left. BREAST: Exam deferred. HEART: Regular rate and rhythm without murmur. ABDOMEN: Distended and tympanic due to swallowed air. Nontender. No organomegaly. : Deferred. EXTREMITIES: With trace to 1+ edema bilaterally in the lower extremities. Upper extremities are without edema, clubbing, or cyanosis. Peripheral pulses in all extremities are dorsal pedis at 1+ bilaterally and radial pulse 2+ bilaterally. NEUROLOGIC: Cranial nerves are intact. Mental status is nonfocal and at baseline. The gait and cerebral function are untested. Sensory exam is grossly intact. LABORATORY DATA: Lab work thus far shows WBCs at 10, hemoglobin 8.5, hematocrit 25.2. Sodium at 126, potassium 4.1, chloride 92, BUN 37, creatinine 2.02 with a GFR of 23, glucose at 148. Lactic acid 0.9. Liver function is unremarkable. Troponin I is negative at 0.028. BNP elevated at 1188. Urinalysis is unremarkable. Chest x-ray reveals heart size mildly enlarged. Consolidation of the left lung base with accompanying small bilateral pleural effusions. ASSESSMENT: 1. Left lower lobe pneumonia. 2. Kthnx-bi-rwtyqps congestive heart failure. 3. Chronic anemia. 4. Renal insufficiency. 5. Hyponatremia. 6. Generalized anxiety. PLAN: Plan will be supportive care with continued BiPAP treatment, monitored in the intermediate care unit. Pain management, anxiety management. Family has been counseled about eventual hospice management as this patient has clearly given her desire not to be intubated. We will consult Dr. Felder and Dr. Varghese and serially re-evaluate her. We will also begin on a low level Lasix drip to try to do a gradual diuresis without further impairing her renal function. Should that fail salt-poor albumin may be utilized. We will also continue IV antibiotics and treat her as COVID positive until the COVID test returns. Job ID: [id number] [facility]TDD
[2019-10-16 04:09] LABS: #Lymphocytes 1.2 thou/uL (1.20-3.40); #Monocytes 1.1 thou/uL (0.11-0.59); #Neutrophils 6.8 thou/uL (1.40-6.50); %Basophils 0.1 % (0.0-1.0); %Eosinophils 0.4 % (0.0-10.0); %Lymphocytes 13.5 % (21.0-51.0); %Monocytes 11.9 % (0.0-10.0); Hemoglobin 7.4 g/dL (12.0-16.0); Mean Corpuscular HGB CONC 32.3 g/dL (32.0-36.0); Mean Corpuscular Hemoglobin 28.5 pg (27.0-31.0); Mean Corpuscular Volume 88.1 fL (78.0-98.0); Platelet Count 234 thou/uL (130-400); RBC Distribution Width 13.1 % (11.5-14.5); Red Blood Cell (RBC) Count 2.58 mill/uL (4.20-5.40); White Blood Cell (WBC) Count 9.2 thou/uL (4.8-10.8)
[2019-10-16 04:31] LABS: Anion Gap 13 mmol/L (10-20); BUN (Urea Nitrogen) 38 mg/dL (9.8-20.1); Calc. Creatinine Clearance 27 mL/min (70-130); Carbon Dioxide 26 mmol/L (23-31); Chloride 93 mmol/L (98-107); Cholesterol 94 mg/dl (< 200 Desired); Estimated GFR-MDRD 25; Glucose 106 mg/dL (83-110); HDL Cholesterol 47 mg/dL (>60 Neg Risk); LDL Cholesterol, Calculated 39 mg/dL; Potassium 3.8 mmol/L (3.5-5.1); Sodium 128 mmol/L (136-145); Triglycerides 38 mg/dL (Less than 150)
[2019-10-16] MEDS: Lorazepam 2 MG/ML VIAL SLOW IVP PRN ×4 (04:55→23:35)
[2019-10-16] MEDS: Nitroglycerin 2% Ointment 1 INCH/1 GM Packet TOP SCH ×4 (04:58→23:39)
--- NOTE | 2019-10-16 07:53 | RAD ---
AP VIEW OF THE CHEST: INDICATION: History of pneumonia and CHF. COMPARISON: Prior exam dated 10/15/2019. FINDINGS: Pleural parenchymal opacities in the left lung base persist. There is worsening airspace disease of the right basilar region. There is worsening pulmonary vascular congestion. No pneumothorax is evid ent. Cardiomegaly is similar-appearing. Osseous structures are unchanged. IMPRESSION: 1. Worsening congestive heart failure. 2. Increasing airspace opacity in the right lung base suspicious for worsening airspace edema. 3. Persistent left basilar pleural parenchymal opacity may reflect consolidation atelectasis and/or airspace edema with effusion. POS: [facility]
[2019-10-16] MEDS ORDERED: D5 1/2 NS w/20 mEq KCL 1,000 ML IV SCH (09:00)
[2019-10-16] MEDS ORDERED: Rivaroxaban 15 MG TAB PO SCH (09:00)
[2019-10-16] MEDS: Amlodipine 5 MG TAB PO SCH (09:39)
[2019-10-16] MEDS: Levothyroxine Sodium 88 MCG TAB PO SCH (09:39)
[2019-10-16] MEDS: Furosemide 100 mg/100 ml in NS IVPB SCH ×2 (09:41→09:51)
[2019-10-16] MEDS: Carvedilol 3.125 MG TAB PO SCH ×2 (09:43→18:33)
--- NOTE | 2019-10-16 10:44 | CON ---
DATE OF CONSULTATION: HISTORY OF PRESENT ILLNESS: Savanna Stone is an 89-year-old female, presented with shortness of breath, she is on high-flow, MICU, reason for consultation. She has no fever or chills. PAST MEDICAL HISTORY: Hypertension, renal failure, congestive heart failure, high cholesterol, hyperlipidemia, and advanced age. SOCIAL HISTORY: Alcohol, none. Tobacco, none. ALLERGIES: 1. PENICILLIN. 2. LEVAQUIN. 3. SULFA. HOME MEDICATIONS: Include: 1. Synthroid 88. 2. Ismo 30. 3. Lasix 20. 4. Nexium 20. 5. Coreg 3.125. 6. Calcium. 7. Atorvastatin 10. 8. Aspirin 81. 9. Norvasc 5. 10. Tylenol 650. She now was started on vancomycin, Synthroid, and Maxipime by primary care physician. REVIEW OF SYSTEMS: Otherwise, negative. PHYSICAL EXAMINATION: VITAL SIGNS: Her maximum temperature is 98, blood pressure respiratory rate 18, pulse 80, and she is on BiPAP. CHEST: Decreased breath sounds. No wheezing. CARDIAC: Normal S1 and S2. No gallops. ABDOMEN: Soft. EXTREMITIES: Trace edema. LABORATORY DATA: Creatinine 1.9, sodium 125. White count 9000, H an H 7 and 21. X-ray shows cardiomegaly, bilateral pleural effusion. IMPRESSION: Congestive heart failure, azotemia, advanced age, and hypothyroidism. I doubt she has pneumonia. X-ray findings are consistent with CHF. Await input from Cardiology. Consider high-flow since she is relatively very comfortable on the BiPAP. This is a consultation note, 70 minutes, 50% direct patient care. Job ID: [id number]
--- NOTE | 2019-10-16 13:00 | CON ---
DATE OF CONSULTATION: HISTORY OF PRESENT ILLNESS: Ms. 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 Initially, she was found to have an incidental pneumonia. In addition, review of the chest x-ray and second repeat chest x-ray showed CHF. We are being consulted for chronic renal failure as well as the hyponatremia. My feeling is that the hyponatremia is secondary to dilutional hyponatremia from her CHF. This morning, she is still short of breath. She is currently on a Lasix drip. REVIEW OF SYSTEMS: Positive for shortness of breath. Denies any fever. No chest pain. No syncopal episode. No nausea. No vomiting. No productive cough. No fever or chills. No gross hematuria. No dysuria. No urinary frequency. No hematochezia. No melena. No hematemesis. Energy level is decreased. MEDICATIONS: 1. Amlodipine 5 mg q.a.m. 2. Atorvastatin 5 mg at bedtime. 3. Carvedilol 3.125 mg p.o. b.i.d. 4. Cefepime 2 g IV daily. 5. Furosemide/Lasix drip 100 mg/10 mL/h. 6. Levothyroxine 88 mcg daily. 7. Ativan 0.5 mg IV q.2 as needed. 8. Nitro-Bid ointment 2% q.6. 9. Protonix 40 mg IV daily. 10. Status post vancomycin. PAST MEDICAL HISTORY: 1. 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 2. Long-standing hypertension. 3. DJD. 4. CHF. 5. Status post gastritis. 6. Hypothyroidism. 7. Hyperlipidemia. 8. Status post diverticulitis. 9. Chronic low back pain. PAST SURGICAL HISTORY: Status post upper and lower GI endoscopy, status post appendectomy, and status post urethral dilatation. ALLERGIES: SULFA. TRAUMA: None. IMMUNIZATIONS: Up-to-date. HOSPITALIZATIONS: Please see past medical history. SOCIAL HISTORY: The patient lives alone, 2 children in good health. No history of smoking. No alcohol intake. Education, one year of college. 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 Sedentary lifestyle. FAMILY HISTORY: No family history of ESRD. PHYSICAL EXAMINATION: VITAL SIGNS: Blood pressure is 177/65, heart rate 71, respiratory rate is 12, currently on BiPAP. GENERAL: The patient is awake, in mild respiratory distress. SKIN: Adequate turgor. HEENT: She has pale conjunctivae. Anicteric sclerae. NECK: No neck mass. No carotid bruits. No JVD. CHEST: No deformities. LUNGS: Harsh breath sounds. HEART: Normal sinus rhythm. No murmurs. No gallops. No rubs. ABDOMEN: Globular, soft, and nontender. No masses. EXTREMITIES: Positive for edema. No deformities. IMAGING DATA: Chest x-ray of October 16, 2019, shows worsening congestive heart failure. There is persistent left basilar parenchymal opacity with pneumonia versus atelectasis. LABORATORY DATA: Laboratories of October 16, 2019; sodium 128, potassium 3.8, chloride 93, carbon dioxide 26, BUN 38, creatinine 1.9, GFR 25 mL/minute, and calcium is 9.0. On October 15, 2019; sodium 126 with creatinine of 2.02. ASSESSMENT AND PLAN: 1. 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 Stable renal function. She is nearing baseline renal function. My last creatinine with her was 1.8 and currently is now 1.9. Continue to optimize hemodynamics. I feel that there may be a component of prerenal azotemia secondary to her congestive heart failure. 2. Hyponatremia - this is dilutional hyponatremia secondary to underlying congestive heart failure. Continue to diurese this patient. 3. Pneumonia, on empiric IV antibiotics. The patient is being ruled out for COVID-19 infection. 4. Anemia. We will continue to observe. P.r.n. blood transfusion. Consider giving her a one-time dose of Lasix at 80 mg IV. We will continue current Lasix drip at the same time. Awaiting Cardiology input. Job ID: [id number] [facility]
--- NOTE | 2019-10-16 13:38 | CON ---
DATE OF CONSULTATION: PRIMARY IMMIGRATION ATTORNEY: Mustapha Felder MD REASON FOR CONSULTATION: Congestive heart failure, chronic atrial fibrillation. HISTORY OF PRESENT ILLNESS: Ms. Stone is a very pleasant 89-year-old patient. She has history of congestive heart failure, systolic and diastolic mixed. She presented to the emergency room with increasing difficulty breathing. The patient has received intravenous diuretics with only a modest response. She is extremely short of breath, currently on high-flow oxygen. She is also currently a COVID rule out. The patient's past history, history of atrial fibrillation and congestive heart failure. She is recently here in the hospital with heart failure. MEDICATION: At home; 1. Nitrates. 2. Coreg 3.125 mg twice a day. 3. Xarelto 15 mg a day. SOCIAL HISTORY: No alcohol or tobacco. PAST HISTORY: Hypertension, heart failure, and hypercholesterolemia. ALLERGIES: TO PENICILLIN, LEVAQUIN, AND SULFA. REVIEW OF SYSTEMS: Otherwise, negative per chart. PHYSICAL EXAMINATION: Per the COVID recommendations, trying to reduce contact. Especially, the patient is on high-flow oxygen. I did review the physical examination report by Dr. Luigi Mitchell. We are awaiting the COVID screen. Please see the notes in the chart, but it indicated that she has an irregular heart rhythm. She is extremely short of breath. No mention of rales. Dr. Albarado mentioned, decreased breath sounds. No wheezing. PERTINENT LABORATORY DATA: Hemoglobin is dropped from 8.5 yesterday to 7.4 today. Her creatinine is 1.9, it was 2.0 yesterday. I and O; she is -1.8 L. Chest x-ray looks like congestive heart failure. Also thought to have perhaps possibly a left lower lobe pneumonia. ASSESSMENT: 1. Congestive heart failure, systolic and diastolic combined, acute on chronic, slowly improving. 2. Anemia. 3. Atrial fibrillation. PLAN: 1. We would stop Xarelto. 2. Continue diuresis. 3. Agree with 1 unit of packed red blood cells in view of the hemoglobin dropping from 8.5 to 7.4. We will continue to follow with you. Dr. Felder will see them tomorrow morning. Job ID: [id number]
[2019-10-16 14:02] LABS: SARS-CoV-2 MS2 Positive; SARS-CoV-2 N Gene Negative; SARS-CoV-2 S Gene Negative; SARS-CoV-2 orf1ab Negative
[2019-10-16] MEDS: Cefepime 2 GM in Sodium Chloride 0.9% 100 ML IVPB SCH (20:34)
[2019-10-16] MEDS: Atorvastatin Calcium 10 MG TAB PO SCH (20:34)
[2019-10-16] MEDS ORDERED: Vancomycin HCl 750 MG in Sodium Chloride 0.9% 250 ML 250 ML IVPB SCH ×2 (21:00→23:00)
[2019-10-16] MEDS ORDERED: Furosemide 40 MG/4 ML VIAL SLOW IVP SCH (21:45)
[2019-10-16] MEDS ORDERED: Furosemide 100 MG, Admixture Fee 1 EACH in Sodium Chloride 0.9% 90 ML IVPB SCH (22:00)
[2019-10-16] MEDS: Morphine 2 MG/ML SYRINGE SLOW IVP PRN (22:04)
[2019-10-17] MEDS: Morphine 2 MG/ML SYRINGE SLOW IVP PRN ×2 (02:23→17:29)
[2019-10-17] MEDS: Lorazepam 2 MG/ML VIAL SLOW IVP PRN (03:25)
[2019-10-17 03:56] LABS: #Monocytes 1.4 thou/uL (0.11-0.59); #Neutrophils 10.4 thou/uL (1.40-6.50); %Basophils 0.4 % (0.0-1.0); %Eosinophils 0.1 % (0.0-10.0); %Lymphocytes 7.7 % (21.0-51.0); %Monocytes 10.8 % (0.0-10.0); Mean Corpuscular HGB CONC 32.8 g/dL (32.0-36.0); Mean Corpuscular Volume 88.4 fL (78.0-98.0); Mean Platelet Volume 8.1 fL (7.4-10.4); Platelet Count 256 thou/uL (130-400); Red Blood Cell (RBC) Count 3.47 mill/uL (4.20-5.40); White Blood Cell (WBC) Count 12.9 thou/uL (4.8-10.8)
[2019-10-17 04:23] LABS: Anion Gap 16 mmol/L (10-20); BUN (Urea Nitrogen) 42 mg/dL (9.8-20.1); Calc. Creatinine Clearance 24 mL/min (70-130); Calcium 9.3 mg/dL (7.8-10.44); Carbon Dioxide 25 mmol/L (23-31); Chloride 94 mmol/L (98-107); Estimated GFR-MDRD 23; Glucose 138 mg/dL (83-110); Potassium 3.8 mmol/L (3.5-5.1); Sodium 131 mmol/L (136-145)
[2019-10-17] MEDS: Nitroglycerin 2% Ointment 1 INCH/1 GM Packet TOP SCH ×3 (06:04→17:14)
--- NOTE | 2019-10-17 07:57 | RAD ---
Chest one view HISTORY: Pneumonia. Follow-up. COMPARISON: 10/16/2019. FINDINGS: Cardiac silhouette is magnified, enlarged, and now more obscured by increasing parenchymal and pleural opacity within the left hemithorax. Pulmonary vasculature is engorged. Small amount right pleural fluid and basilar infiltrate are favored to be unchanged. Mediastinum is rotated rightward with the patient. No evidence of pneumothorax. IMPRESSION : Radiographic worsening of left pleural fluid and left lung infiltrate. Other findings are stable.
[2019-10-17] MEDS ORDERED: Lidocaine 1% (PF) 30 ML VIAL ONE (09:42)
--- NOTE | 2019-10-17 09:52 | PRG ---
DATE OF SERVICE: 10/17/2019 SUBJECTIVE: This morning, the patient is back on BiPAP for a while. Yesterday, she was doing good on high-flow. OBJECTIVE: VITAL SIGNS: Temperature 97, on BiPAP. CHEST: Decreased breath sounds bilaterally, left greater than right. CARDIAC: Normal S1, S2. No gallops. ABDOMEN: No masses. LABORATORY DATA: Creatinine 2, BUN 42. White count 12,000. X-ray shows worsening left-sided pleural effusion. IMPRESSION: Multiorgan failure, congestive heart failure, large left pleural effusion, dyspnea, and renal failure. PLAN: thoracentesis is being performed. Otherwise, I would discontinue all the antibiotics, nothing to suspect sepsis, particularly vancomycin has been discontinued. We will follow. Job ID: [id number]
[2019-10-17] MEDS: Levothyroxine Sodium 88 MCG TAB PO SCH (09:54)
[2019-10-17] MEDS: Carvedilol 3.125 MG TAB PO SCH ×2 (09:55→17:15)
[2019-10-17] MEDS: Amlodipine 5 MG TAB PO SCH (09:55)
[2019-10-17] MEDS: D5 1/2 NS w/20 mEq KCL 1,000 ML IV SCH ×2 (09:56→17:49)
--- NOTE | 2019-10-17 10:33 | OP ---
DATE OF PROCEDURE: 10/17/2019 PROCEDURE PERFORMED: Thoracentesis. INDICATION: Pleural effusion. DESCRIPTION OF PROCEDURE: After informed consent from the family members including a daughter and a son, the left posterior thorax was cleaned with chlorhexidine. 1% lidocaine was used to infiltrate into the left 9th intercostal space and 20 ml Slightly turbid yellow fluid was removed, 8 greenlandic cather then used to remove with vaccum bottle, total of 900 mL was removed without any difficulty. Fluid sent for appropriate studies including cytology and culture. The patient tolerated the procedure well. Job ID: [id number] [facility]
--- NOTE | 2019-10-17 11:00 | PRG ---
DATE OF SERVICE: SUBJECTIVE: Ms. Stone is an 89-year-old white female, who was admitted for CHF , which was associated with dilutional hyponatremia. She was also ruled out for COVID. We are following up this patient for chronic renal failure. This has been fluctuating and this has been a reflection her current diuresis and CHF that she has. We will discontinue the Lasix drip and convert her to intermittent IV Lasix at 40 mg IV q.12. Please note, thoracentesis was done by Dr. Albarado and about a liter of fluid was removed. Her breathing is much better after the said thoracentesis. OBJECTIVE: VITAL SIGNS: Blood pressure is 165/48, heart rate 70, respiratory rate 20, and O2 sat 99%. GENERAL: Awake, comfortable, lethargic, but not in distress. SKIN: Adequate turgor. HEENT: She has pinkish conjunctivae. Anicteric sclerae. NECK: No neck mass. No carotid bruits. No JVD. CHEST: No deformities. LUNGS: Decreased breath sounds. HEART: Normal sinus rhythm. No murmur. No gallops. No rubs. ABDOMEN: Globular, soft, and nontender. No masses. EXTREMITIES: Positive for edema. MEDICATIONS: Medications of October 17, 2019, were reviewed. LABORATORY DATA: October 17, 2019; white count 12.9, hemoglobin 10, sodium 131, potassium 3.8, chloride 94, carbon dioxide 25, BUN 42, creatinine 2.08, glucose 138, calcium 9.3, and TSH 2.3. COVID-19 negative. Urinalysis, no pigmented granular casts, positive for protein. ASSESSMENT AND PLAN: 1. Chronic renal failure/chronic interstitial nephritis - slightly higher creatinine at 2.08 from 1.9. This could be a reflection of her underlying congestive heart failure and diuretic regimen. The plan is to hold off her current IV Lasix. We will convert to Lasix 40 mg IV q.12. 2. Acute kidney injury- superimposed hemodynamically-mediated dysfunction. 3. Congestive heart failure - the patient is status post thoracentesis. Continue IV diuretics. 4. Hyponatremia secondary to dilutional hyponatremia from her underlying CHF. Slowly improving with improving CHF. 5. Agree with current management. Recheck CBC and base met in a.m. Job ID: [id number] [facility]
[2019-10-17 11:24] LABS: RBC Count-Automated (BF) 6010 /cu.mm; WBC/Nucleated-Auto (BF) 293 uL
[2019-10-17 11:34] LABS: Fluid, Triglycerides 28 mg/dL (Not Available); Pleural Fluid, Amylase Less than 30 U/L (Not Available); Pleural Fluid, Glucose 132 mg/dL; Pleural Fluid, LDH 70 U/L (Not Available); Pleural Fluid, Protein 2.2 g/dL
[2019-10-17 11:41] LABS: BF Color Yellow; Body Fluid Source Thoracentesis Fluid; Clarity Hazy (Clear); Tube # 3
[2019-10-17 11:49] LABS: BF Segmented Neutrophils 22 %; Cell Count Non Hematic 58 %; Lymphocytes 20 %
--- NOTE | 2019-10-17 11:57 | RAD ---
CHEST 1 VIEW PORTABLE: HISTORY: Followup pneumonia. COMPARISON: 10/17/2019. FINDINGS: Persistent cardiomegaly with bilateral vascular congestion and interstitial and alveolar edema and pl eural effusions. The amount of left pleural effusion appears to have diminished somewhat from the mo st recent prior study. IMPRESSION: Cardiomegaly with vascular congestion and interstitial and alveolar bilateral parenchymal changes wit h bilateral pleural effusions which appear somewhat smaller on the left side than when compared to th e most recent prior study. Continue short-term followup. POS: [facility]
[2019-10-17] MEDS: Furosemide 40 MG/4 ML VIAL SLOW IVP SCH (17:15)
[2019-10-17] MEDS ORDERED: Nitroglycerin 0.4 MG TAB (25 Tab Bottle) ONE (18:38)
[2019-10-17] MEDS ORDERED: Nitroglycerin 0.4 MG TAB (25 Tab Bottle) SL PRN (19:00)
[2019-10-17] MEDS ORDERED: Calcium Carbonate 500 MG ChewTAB PO PRN (19:01)
[2019-10-17] MEDS: Cefepime 2 GM in Sodium Chloride 0.9% 100 ML IVPB SCH (20:53)
[2019-10-17] MEDS: Atorvastatin Calcium 10 MG TAB PO SCH (20:53)
[2019-10-18] MEDS: Morphine 2 MG/ML SYRINGE SLOW IVP PRN (01:04)
[2019-10-18] MEDS: Nitroglycerin 2% Ointment 1 INCH/1 GM Packet TOP SCH ×2 (01:48→05:40)
[2019-10-18 03:42] LABS: #Eosinphils 0.2 thou/uL (0.0-0.7); #Lymphocytes 1.1 thou/uL (1.20-3.40); #Monocytes 1.1 thou/uL (0.11-0.59); #Neutrophils 6.2 thou/uL (1.40-6.50); %Basophils 0.1 % (0.0-1.0); %Eosinophils 2.8 % (0.0-10.0); %Lymphocytes 13.1 % (21.0-51.0); %Monocytes 12.4 % (0.0-10.0); %Neutrophils 71.6 % (42.0-75.0); Hemoglobin 8.5 g/dL (12.0-16.0); Mean Corpuscular HGB CONC 31.7 g/dL (32.0-36.0); Mean Corpuscular Volume 88.4 fL (78.0-98.0); Mean Platelet Volume 8.2 fL (7.4-10.4); Platelet Count 245 thou/uL (130-400); RBC Distribution Width 13.1 % (11.5-14.5); Red Blood Cell (RBC) Count 3.03 mill/uL (4.20-5.40); White Blood Cell (WBC) Count 8.7 thou/uL (4.8-10.8)
[2019-10-18 04:08] LABS: Anion Gap 13 mmol/L (10-20); BUN (Urea Nitrogen) 43 mg/dL (9.8-20.1); Calc. Creatinine Clearance 23 mL/min (70-130); Carbon Dioxide 27 mmol/L (23-31); Chloride 97 mmol/L (98-107); Estimated GFR-MDRD 21; Glucose 116 mg/dL (83-110); Potassium 3.5 mmol/L (3.5-5.1); Sodium 133 mmol/L (136-145)
[2019-10-18] MEDS: Furosemide 40 MG/4 ML VIAL SLOW IVP SCH ×2 (05:40→17:14)
--- NOTE | 2019-10-18 07:49 | RAD ---
Chest one view HISTORY: Pneumonia. Follow-up. COMPARISON: 10/17/2019. FINDINGS: Cardiac silhouette is magnified and enlarged. Pulmonary vasculature remains engorged with w idespread reticulonodular interstitial prominence. Mediastinum is midline with aortic calcification. Patchy bibasilar infiltrates and bilateral pleural fluid are again demonstrated. Left hemidiaphragm l ess conspicuous than on the previous study. No evidence of pneumothorax. IMPRESSION : Pulmonary vascular congestion. Bibasilar infiltrates and pleural fluid again demonstrated, slightly g reater on the left than on the previous study.
[2019-10-18] MEDS ORDERED: Milk Of Magnesia 30 ML UDCUP PO SCH (08:45)
[2019-10-18] MEDS: Acetaminophen 325 MG TAB PO SCH ×4 (08:52→21:14)
[2019-10-18] MEDS: Docusate 100 MG CAP PO SCH ×2 (08:53→21:14)
[2019-10-18] MEDS: Levothyroxine Sodium 88 MCG TAB PO SCH (08:53)
[2019-10-18] MEDS: Carvedilol 3.125 MG TAB PO SCH ×2 (08:53→17:14)
[2019-10-18] MEDS: Amlodipine 5 MG TAB PO SCH (08:53)
--- NOTE | 2019-10-18 10:38 | PRG ---
DATE OF SERVICE: 10/18/2019 SUBJECTIVE: Ms. Stone is an 89-year-old white female, who was admitted for congestive heart failure/pneumonia. We are following her up for her chronic renal failure/acute kidney injury. She continues to be diuresed. Her breathing is much better. She also was ruled out for a COVID infection. OBJECTIVE: VITAL SIGNS: Blood pressure 134/46, heart rate 58, respiratory rate 17, O2 saturation 96%. GENERAL: Awake, alert, comfortable, not in distress. SKIN: Adequate turgor. HEENT: Slightly pale conjunctivae. Anicteric sclerae. NECK: No neck mass. No carotid bruits. No JVD. CHEST: No deformities. LUNGS: Harsh breath sounds. HEART: Normal sinus rhythm. No murmur. No gallops. No rubs. ABDOMEN: Globular, soft, and nontender. No masses. EXTREMITIES: Trace edema. MEDICATIONS: Medications of October 18, 2019, were reviewed. LABORATORY DATA: Laboratories of October 18, 2019: White count 8.7, hemoglobin 8.5. Sodium 133, potassium 3.5, chloride 97, carbon dioxide 27, BUN 43, creatinine 2.25, glucose 106, calcium 9. ASSESSMENT AND PLAN: 1. Acute kidney injury on top of chronic renal failure, superimposed prerenal azotemia secondary to underlying congestive heart failure as well as diuretic use. Continue supportive care. There is no indication for any dialytic intervention. Creatinine slightly high at 2.25 from yesterday of 2.08. Adjust diuretics as needed. 2. Shortness of breath, multifactorial etiology - congestive heart failure/pneumonia. Clinically much improved with diuresis. The patient is also covered with IV antibiotics. 3. Anemia. We will continue to observe. Overall prognosis remains guarded. Job ID: [id number]
[2019-10-18] MEDS ORDERED: Cefdinir 300 MG CAP PO SCH (11:30)
[2019-10-18] MEDS: D5 1/2 NS w/20 mEq KCL 1,000 ML IV SCH (13:05)
--- NOTE | 2019-10-18 14:00 | EKG ---
Test Reason : CP Blood Pressure : / mmHG Vent. Rate : 077 BPM Atrial Rate : 077 BPM P-R Int : 000 ms QRS Dur : 100 ms QT Int : 390 ms P-R-T Axes : 000 050 217 degrees QTc Int : 441 ms Sinus rhythm with 1st degree A-V block Premature atrial complexes Abnormal ECG Confirmed by AURA LU ([id number]) on 10/18/2019 1:59:28 PM Referred By: SOFIA Confirmed By:AURA LU
--- NOTE | 2019-10-18 15:33 | PRG ---
DATE OF SERVICE: 10/17/2019 SUBJECTIVE: Ms. Stone is complaining of chest pain. It is mainly worse with deep breath. It is left-sided. She underwent thoracentesis earlier today. Her EKG appears to be unchanged from previous EKG. OBJECTIVE: GENERAL: Patient is a pleasant female, who is in no acute distress. The patient appears their stated age. VITAL SIGNS: Blood pressure 130/40, pulse 80, respirations 20. NEUROLOGIC: The patient is alert and oriented x3 with no focal neurologic deficits. HEENT: Sclerae without icterus. Mouth has moist mucous membranes with normal pallor. NECK: No JVD. Carotid upstroke brisk. No bruits bilaterally. LUNGS: Crackles noted bilaterally. She currently has high flow oxygen. BACK: No scoliosis or kyphosis. CARDIAC: Regular rate and rhythm with normal S1 and S2. No S3 or S4 noted. No significant rubs, murmurs, thrills, or gallops noted throughout the precordium. PMI is not displaced. There is no parasternal heave. ABDOMEN: Soft, nontender, nondistended. No peritoneal signs present. No hepatosplenomegaly. No abnormal striae. EXTREMITIES: 2+ femoral and 2+ dorsalis pedis pulses. No cyanosis, clubbing, or edema. SKIN: No gross abnormalities. PERTINENT LABORATORY DATA: Hemoglobin 8.5, hematocrit 26.8, creatinine 2.25, GFR 21. IMPRESSION: 1. Atypical chest pain. 2. Acute on chronic systolic heart failure. 3. Pneumonia. RECOMMENDATIONS: Ms. Stone continues to decline overall from a health standpoint. Conservative measures have been recommended. At this point, we would recommend continued medical therapy. She will be given morphine for discomfort. Again, this is likely related to recent thoracentesis with pain being worse with deep breath. We would also consider comfort measures based on her continued decline. Job ID: [id number]
--- NOTE | 2019-10-18 16:22 | PRG ---
DATE OF SERVICE: 10/18/2019 SUBJECTIVE: Ms. Stone's status is mainly unchanged. She does state she feels better. She has had episodes of bradycardia. She is currently on Coreg 3.125 one p.o. b.i.d. OBJECTIVE: VITAL SIGNS: Blood pressure 123/41, pulse 48, respirations 20. LUNGS: Crackles noted bilaterally. HEART: Regular rate and rhythm with extra systolic beat. ABDOMEN: Soft, nontender, nondistended. EXTREMITIES: No edema. PERTINENT LABORATORY DATA: Hemoglobin 8.5. IMPRESSION: 1. Acute on chronic systolic heart failure. 2. Pneumonia. 3. Pleural effusion. 4. Hypoxia. RECOMMENDATIONS: 1. We will discontinue Coreg due to intermittent bradycardia. 2. Continue conservative measures. 3. Palliative care has been consulted. Otherwise, I have no recommendations. Job ID: [id number]
[2019-10-18] MEDS: Atorvastatin Calcium 10 MG TAB PO SCH (21:14)
[2019-10-19 03:22] LABS: #Basophils 0.1 thou/uL (0.0-0.2); #Eosinphils 0.4 thou/uL (0.0-0.7); #Lymphocytes 1.4 thou/uL (1.20-3.40); #Neutrophils 5.5 thou/uL (1.40-6.50); %Basophils 0.6 % (0.0-1.0); %Eosinophils 5.3 % (0.0-10.0); %Lymphocytes 16.9 % (21.0-51.0); %Monocytes 11.6 % (0.0-10.0); %Neutrophils 65.6 % (42.0-75.0); Mean Corpuscular HGB CONC 33.1 g/dL (32.0-36.0); Mean Corpuscular Hemoglobin 29.4 pg (27.0-31.0); Mean Corpuscular Volume 88.8 fL (78.0-98.0); Mean Platelet Volume 8.3 fL (7.4-10.4); Platelet Count 232 thou/uL (130-400); RBC Distribution Width 13.2 % (11.5-14.5); Red Blood Cell (RBC) Count 3.04 mill/uL (4.20-5.40); White Blood Cell (WBC) Count 8.3 thou/uL (4.8-10.8)
[2019-10-19 03:44] LABS: Anion Gap 12 mmol/L (10-20); BUN (Urea Nitrogen) 46 mg/dL (9.8-20.1); Calc. Creatinine Clearance 22 mL/min (70-130); Calcium 8.9 mg/dL (7.8-10.44); Carbon Dioxide 28 mmol/L (23-31); Chloride 96 mmol/L (98-107); Estimated GFR-MDRD 19; Glucose 106 mg/dL (83-110); Potassium 3.5 mmol/L (3.5-5.1); Sodium 132 mmol/L (136-145)
[2019-10-19] MEDS: Furosemide 40 MG/4 ML VIAL SLOW IVP SCH ×2 (06:04→16:36)
[2019-10-19] MEDS: Acetaminophen 325 MG TAB PO SCH ×5 (06:04→20:36)
[2019-10-19] MEDS: Amlodipine 5 MG TAB PO SCH (08:21)
[2019-10-19] MEDS: Levothyroxine Sodium 88 MCG TAB PO SCH (08:21)
[2019-10-19] MEDS: Docusate 100 MG CAP PO SCH ×2 (08:21→20:36)
[2019-10-19] MEDS: Cefdinir 300 MG CAP PO SCH (08:21)
--- NOTE | 2019-10-19 09:52 | PDOC.FMACP ---
Advance Care Planning - Problem (1) Heart failure Status: Acute Code(s): I50.9 - HEART FAILURE, UNSPECIFIED (2) Palliative care encounter Status: Acute Code(s): Z51.5 - ENCOUNTER FOR PALLIATIVE CARE - Note Participants: patient, family, palliative care Summary: Advanced Care Planning was presented discussed by Palliative Care Team. Patient and family were allowed the opportunity to decline information. The diagnosis, prognosis and goals of care were discussed. Appropriate forms and documentation to accomplish the goals of care were discussed. All questions were answered. Amanda Vázquez and Dana Ly assisted in updating and completing the MPOA as well as DNAR. Presented Directive to Physicians. Ms Stone is hopeful for quality of end of life and interested in transitioning to Hospice to manage symptoms related to multiple morbidities. Please also refer to Amanda Vázquez RN notes in note section Time Spent (mins): 30
--- NOTE | 2019-10-19 09:56 | PRG ---
DATE OF SERVICE: 10/19/2019 SUBJECTIVE: This morning, she is better, she is less short of breath, she is still on high-flow which can probably be tapered down. OBJECTIVE: VITAL SIGNS: Blood pressure is 147/52, pulse 70, saturations 96%, respirations 18. CHEST: Decreased breath sounds. No wheezing. CARDIAC: Normal S1, S2. No gallops. ABDOMEN: No masses. LABORATORY DATA: Creatinine 2.36. BNP is 1228. IMPRESSION: Bilateral pleural effusion, respiratory failure, status post thoracentesis, and renal failure. PLAN: Continue supportive care, cardiac care. Pulmonary is following loosely. Job ID: [id number]
--- NOTE | 2019-10-19 10:01 | PRG ---
DATE OF SERVICE: 10/19/2019 SUBJECTIVE: Ms. Stone is an 89-year-old white female with chronic renal failure, was admitted for acute respiratory failure. She was ruled out for COVID. She was found to be in CHF. She was also noted to be hyponatremic, which was dilutional in nature secondary to her CHF. Serum sodium has been improving. Her breathing is better. During this hospitalization, she also underwent thoracentesis. Creatinine is noted to be slowly creeping up with the most recent creatinine is now noted at 2.37, on admission this was 1.9. In addition, she has a BNP of 1228.8. The patient voices no other complaints. She still has some mild shortness of breath, but this is much improved. OBJECTIVE: VITAL SIGNS: Blood pressure 147/52 with a heart rate of 68, respiratory rate 23, O2 saturation 97%. GENERAL: Noted to be awake, comfortable, not in overt distress. SKIN: Adequate turgor. HEENT: Pinkish conjunctivae. Anicteric sclerae. No neck mass. No carotid bruits. No JVD. LUNGS: Bibasilar crackles. HEART: Normal sinus rhythm. No murmur. No gallops. No rubs. ABDOMEN: Globular, soft, nontender. No masses. EXTREMITIES: Positive for edema. MEDICATIONS: Medications of October 18, 2019, were reviewed. LABORATORY DATA: Laboratories of October 19, 2019, white count 8.3, hemoglobin 9, sodium 132, potassium 3.5, chloride 96, carbon dioxide 28, BUN 46, creatinine 2.37, calcium 8.9. BNP is 1228. ASSESSMENT AND PLAN: 1. Chronic renal failure/acute kidney injury, superimposed prerenal azotemia on top of her chronic renal failure. There is a prerenal component. For the moment, we will continue Lasix at 40 mg IV q.12. Due to the worsening creatinine, we will give an albumin infusion 25 g IV q.6 for 4 doses only. This will also enhance the diuretic effect of her Lasix. 2. Congestive heart failure, clinically improving. 3. Pleural effusion. The patient is status post thoracentesis. 4. Pneumonia, on IV antibiotics. Overall, agree with current management. Job ID: [id number]
[2019-10-19] MEDS: Albumin 25% 25 GM/100 ML BOT IVPB SCH ×2 (11:16→16:36)
[2019-10-19] MEDS: D5 1/2 NS w/20 mEq KCL 1,000 ML IV SCH (20:35)
[2019-10-19] MEDS: Atorvastatin Calcium 10 MG TAB PO SCH (20:36)
[2019-10-19] MEDS: Ondansetron PF 4 MG/2 ML Vial IVP PRN (23:17)
[2019-10-20] MEDS: Lorazepam 2 MG/ML VIAL SLOW IVP PRN (02:15)
[2019-10-20] MEDS: Albumin 25% 25 GM/100 ML BOT IVPB SCH (02:16)
[2019-10-20 03:54] LABS: #Eosinphils 0.5 thou/uL (0.0-0.7); #Lymphocytes 1.4 thou/uL (1.20-3.40); #Monocytes 0.9 thou/uL (0.11-0.59); #Neutrophils 4.5 thou/uL (1.40-6.50); %Basophils 0.3 % (0.0-1.0); %Eosinophils 6.6 % (0.0-10.0); %Lymphocytes 18.7 % (21.0-51.0); %Monocytes 11.9 % (0.0-10.0); %Neutrophils 62.6 % (42.0-75.0); Hemoglobin 8.7 g/dL (12.0-16.0); Mean Corpuscular HGB CONC 32.4 g/dL (32.0-36.0); Mean Corpuscular Hemoglobin 28.7 pg (27.0-31.0); Mean Corpuscular Volume 88.7 fL (78.0-98.0); Mean Platelet Volume 7.9 fL (7.4-10.4); Platelet Count 226 thou/uL (130-400); RBC Distribution Width 13.2 % (11.5-14.5); Red Blood Cell (RBC) Count 3.02 mill/uL (4.20-5.40); White Blood Cell (WBC) Count 7.2 thou/uL (4.8-10.8)
[2019-10-20 04:14] LABS: Anion Gap 15 mmol/L (10-20); BUN (Urea Nitrogen) 45 mg/dL (9.8-20.1); Calc. Creatinine Clearance 25 mL/min (70-130); Calcium 9.5 mg/dL (7.8-10.44); Carbon Dioxide 28 mmol/L (23-31); Chloride 97 mmol/L (98-107); Estimated GFR-MDRD 22; Glucose 105 mg/dL (83-110); Potassium 3.5 mmol/L (3.5-5.1); Sodium 136 mmol/L (136-145)
[2019-10-20] MEDS: Furosemide 40 MG/4 ML VIAL SLOW IVP SCH ×2 (06:07→16:49)
[2019-10-20] MEDS: Acetaminophen 325 MG TAB PO SCH ×5 (06:09→21:31)
[2019-10-20] MEDS: Amlodipine 5 MG TAB PO SCH (08:01)
[2019-10-20] MEDS: Docusate 100 MG CAP PO SCH ×2 (08:01→21:41)
[2019-10-20] MEDS: Cefdinir 300 MG CAP PO SCH (08:01)
[2019-10-20] MEDS: Levothyroxine Sodium 88 MCG TAB PO SCH (08:01)
--- NOTE | 2019-10-20 08:39 | PDOC.CPN ---
- Subjective Date: 10/20/19 Time: 12:09 Interval history: Pt did not sleep well last night SOB is better overall HR, BP stable - Objective Allergies/Adverse Reactions: Allergies Allergy/AdvReac Type Severity Reaction Status Date / Time levofloxacin [From Levaquin] Allergy Verified 10/17/19 22:47 Penicillins Allergy Hives Verified 09/26/19 21:36 Sulfa (Sulfonamide Allergy Emesis Verified 09/26/19 21:36 Antibiotics) Visit Medications: Current Medications Acetaminophen (Tylenol) 650 mg PO L2US-WP SCH Last Admin: 10/20/19 08:33 Dose: Not Given Amlodipine Besylate (Norvasc) 5 mg PO QAM [facility] Last Admin: 10/20/19 08:01 Dose: 5 mg Atorvastatin Calcium (Lipitor) 5 mg PO HS [facility] Last Admin: 10/19/19 20:36 Dose: 5 mg Calcium Carbonate (Tums) 1,000 mg PO QIDPRN PRN PRN Reason: Heartburn or Indigestion Cefdinir (Omnicef) 300 mg PO 0900 [facility] Stop: 10/23/19 09:01 Last Admin: 10/20/19 08:01 Dose: 300 mg Docusate Sodium (Colace) 100 mg PO BID [facility] Last Admin: 10/20/19 08:01 Dose: 100 mg Furosemide (Lasix) 40 mg SLOW IVP 0500,1700 [facility] Last Admin: 10/20/19 06:07 Dose: 40 mg Potassium Chloride/Dextrose/Sod Cl (D5 1/2 Ns W/20 Meq Kcl) 1,000 mls @ 50 mls/ hr IV .Q20H [facility] Last Admin: 10/19/19 20:35 Dose: 1,000 mls Levothyroxine Sodium (Synthroid) 88 mcg PO DAILY-AC [facility] Last Admin: 10/20/19 08:01 Dose: 88 mcg Lorazepam (Ativan) 1 mg SLOW IVP Q3H PRN PRN Reason: ANXIETY/AGITATION Last Admin: 10/20/19 02:15 Dose: 1 mg Miscellaneous Medication (Pharmacy To Dose) 1 each IVPB PRN PRN PRN Reason: Pharmacy to dose Morphine Sulfate (Morphine) 2 mg SLOW IVP Q3H PRN PRN Reason: Moderate to Severe Pain (6-10) Last Admin: 10/18/19 01:04 Dose: 2 mg Nitroglycerin (Nitrostat) 0.4 mg SL Q5MIN PRN PRN Reason: Chest Pain Ondansetron HCl (Zofran) 4 mg IVP Q6H PRN PRN Reason: Nausea/Vomiting Last Admin: 10/19/19 23:17 Dose: 4 mg Pantoprazole Sodium (Protonix) 40 mg PO DAILY [facility] Last Admin: 10/20/19 08:01 Dose: 40 mg Sodium Chloride (Flush - Normal Saline) 10 ml IVF PRN PRN PRN Reason: Saline Flush Zolpidem Tartrate (Ambien) 5 mg PO HSPRN PRN PRN Reason: .SLEEP Vital Signs & Weight: Vital Signs Temp Pulse Resp BP BP Pulse Ox 10/20/19 08:01 60 150/63 H 10/20/19 08:00 96 10/20/19 07:52 98.3 F 50 L 18 134/48 L 97 10/20/19 03:32 97.4 F L 10/19/19 23:44 97.3 F L Weight 181 lb 4.8 oz - Physical Exam General: alert & oriented x3 Neck: no JVD/HJR, no masses Cardiac: regular rate, regular rhythm Lungs: decreased breath sounds Neuro: grossly intact Abdomen: no pulsations/bruits Extremities: 1+ LE edema - Labs Result Diagrams: 10/20/19 03:08 10/20/19 03:08 Troponin/CKMB Troponin I 0.050 ng/mL (< 0.028) H 10/15/19 23:43 - Assessment/Plan Assessment/Plan: Ischemic CM Pleural effusion Advanced renal dysfunction anemia from renal dysfunction Contiue supportive care On lasix Hold BB seocndary to low HR Avoid ACEI, ARB secondary to renal dysfunction No further recommendations Pt to transition to hospice I will follow perpherally
--- NOTE | 2019-10-20 13:11 | PRG ---
DATE OF SERVICE: 10/20/2019 SUBJECTIVE: Ms. Stone is an 89-year-old white female who was admitted for congestive heart failure/pneumonia. Since that time, she is clinically much improved. We are following up this patient for acute kidney injury on top of chronic renal failure. At one time, she also had significant hyponatremia. This has improved with treatment of her underlying congestive heart failure. She voices no new complaints today. OBJECTIVE: VITAL SIGNS: Blood pressure 147/81, heart rate 63, respiratory rate 24, and O2 saturation 92%. GENERAL: The patient is awake, alert, and comfortable, not in distress. SKIN: Adequate turgor. HEENT: Slightly pale conjunctivae. Anicteric sclerae. NECK: No neck mass. No carotid bruits. No JVD. CHEST: No deformities. LUNGS: Decreased breath sounds. HEART: Normal sinus rhythm. No murmur, no gallops, and no rubs. ABDOMEN: Globular, soft, and nontender. No masses. EXTREMITIES: Trace edema. MEDICATIONS: Medications of 10/20/2019 were reviewed. LABORATORY DATA: On 10/20/2019: White count 7.2 and hemoglobin 8.7. Sodium 136, potassium 3.5, chloride 97, carbon dioxide 28, BUN 45, and creatinine 2.15. BNP is 1228. ASSESSMENT AND PLAN: 1. Acute kidney injury on top of chronic renal failure, improved creatinine from 2.37 to a most recent value of 2.15. She received one dose of albumin yesterday. In addition, she is receiving a gentle volume repletion. Continue current management. No indication for any dialytic intervention. 2. Congestive heart failure, clinically improved. 3. Pneumonia, clinically improved on IV antibiotics. We will continue current management for the moment, judicious use of IV fluids. 4. Recheck basic metabolic and CBC in a.m. Job ID: [id number]
[2019-10-20] MEDS: D5 1/2 NS w/20 mEq KCL 1,000 ML IV SCH (16:49)
[2019-10-20] MEDS: Atorvastatin Calcium 10 MG TAB PO SCH (21:31)
[2019-10-21] MEDS: Albumin 25% 25 GM/100 ML BOT IVPB SCH ×3 (00:34→11:19)
[2019-10-21] MEDS: Acetaminophen 325 MG TAB PO SCH ×5 (05:33→21:20)
[2019-10-21] MEDS: Furosemide 40 MG/4 ML VIAL SLOW IVP SCH ×2 (05:33→16:21)
[2019-10-21 05:37] LABS: #Eosinphils 0.4 thou/uL (0.0-0.7); #Lymphocytes 1.3 thou/uL (1.20-3.40); #Monocytes 0.9 thou/uL (0.11-0.59); #Neutrophils 3.9 thou/uL (1.40-6.50); %Basophils 0.7 % (0.0-1.0); %Lymphocytes 20.4 % (21.0-51.0); %Neutrophils 59.9 % (42.0-75.0); Hemoglobin 8.6 g/dL (12.0-16.0); Mean Corpuscular HGB CONC 30.8 g/dL (32.0-36.0); Mean Corpuscular Hemoglobin 27.8 pg (27.0-31.0); Mean Corpuscular Volume 90.1 fL (78.0-98.0); Mean Platelet Volume 7.8 fL (7.4-10.4); Platelet Count 232 thou/uL (130-400); RBC Distribution Width 13.5 % (11.5-14.5); Red Blood Cell (RBC) Count 3.11 mill/uL (4.20-5.40); White Blood Cell (WBC) Count 6.5 thou/uL (4.8-10.8)
[2019-10-21 05:59] LABS: Anion Gap 14 mmol/L (10-20); BUN (Urea Nitrogen) 47 mg/dL (9.8-20.1); Calc. Creatinine Clearance 24 mL/min (70-130); Calcium 9.6 mg/dL (7.8-10.44); Carbon Dioxide 28 mmol/L (23-31); Chloride 97 mmol/L (98-107); Estimated GFR-MDRD 22; Glucose 112 mg/dL (83-110); Potassium 3.8 mmol/L (3.5-5.1); Sodium 135 mmol/L (136-145)
[2019-10-21] MEDS: Docusate 100 MG CAP PO SCH ×2 (08:30→21:19)
[2019-10-21] MEDS: Cefdinir 300 MG CAP PO SCH (08:30)
[2019-10-21] MEDS: Levothyroxine Sodium 88 MCG TAB PO SCH (08:30)
[2019-10-21] MEDS: Amlodipine 5 MG TAB PO SCH (08:30)
[2019-10-21] MEDS: Fluticasone Propionate Nasal Spray 16 gm Bottle NASAL SCH ×2 (08:31→21:22)
[2019-10-21] MEDS: D5 1/2 NS w/20 mEq KCL 1,000 ML IV SCH (11:20)
--- NOTE | 2019-10-21 12:17 | PRG ---
DATE OF SERVICE: 10/21/2019 SERVICE: Renal Medicine. SUBJECTIVE: Ms. Stone is an 89-year-old white female, admitted for shortness of breath. She was found to be in CHF as well as with pneumonia. She has been diuresed and adjustment of diuretics has been made. We are following her up for acute kidney injury/chronic renal failure. She is doing better. She voices no new complaints today. She denies any chest pain or shortness of breath. OBJECTIVE: VITAL SIGNS: Blood pressure is 164/67, heart rate 71, respiratory rate 18, temperature 98.9, and O2 saturation is 92%. GENERAL: Awake, alert, supine, comfortable, not in distress. SKIN: Adequate turgor. HEENT: Slightly pale conjunctivae. Anicteric sclerae. NECK: No neck mass. No carotid bruits. No JVD. CHEST: No deformities. LUNGS: Decreased breath sounds. HEART: Normal sinus rhythm. No murmur. No gallops. No rubs. ABDOMEN: Globular, soft, and nontender. No masses. EXTREMITIES: Trace edema. MEDICATIONS: Medications of October 21, 2019, was reviewed. LABORATORY DATA: Laboratories of October 21, 2019; white count 6.5, hemoglobin 8.6. Sodium 135, potassium 3.8, chloride 97, carbon dioxide 28, BUN 47, creatinine 2.1, calcium is 9.6. ASSESSMENT AND PLAN: 1. Acute kidney injury/chronic renal failure, stable, doing well. The patient has been receiving albumin infusion. Please note, there is stabilization of the renal function. 2. Congestive heart failure, clinically much improved, currently on IV diuretics. Continue current Lasix dose. 3. Pneumonia, currently on p.o. antibiotics, stabilizing with this regard. 4. Anemia. Continue to observe. Recheck CBC and basic metabolic panel in a.m. Job ID: [id number]
[2019-10-21] MEDS ORDERED: Carvedilol 3.125 MG TAB PO SCH (18:00)
--- NOTE | 2019-10-21 18:13 | RAD ---
CHEST ONE VIEW: Comparison: 10-18-2019 History: Congestive heart failure. FINDINGS: Cardiomegaly. There are bilateral pleural effusions with adjacent parenchymal changes. No pneumothora x. IMPRESSION: Congestive heart failure. POS: PPP
[2019-10-21] MEDS: Atorvastatin Calcium 10 MG TAB PO SCH (21:20)
[2019-10-21] MEDS: cloNIDine 0.1 MG TAB PO PRN (21:28)
[2019-10-22] MEDS: Ondansetron PF 4 MG/2 ML Vial IVP PRN (00:10)
[2019-10-22] MEDS: Lorazepam 2 MG/ML VIAL SLOW IVP PRN (03:31)
[2019-10-22 05:34] LABS: #Eosinphils 0.3 thou/uL (0.0-0.7); #Monocytes 0.7 thou/uL (0.11-0.59); #Neutrophils 3.9 thou/uL (1.40-6.50); %Basophils 0.8 % (0.0-1.0); %Eosinophils 5.2 % (0.0-10.0); %Lymphocytes 16.8 % (21.0-51.0); %Monocytes 11.3 % (0.0-10.0); %Neutrophils 65.9 % (42.0-75.0); Hemoglobin 7.9 g/dL (12.0-16.0); Mean Corpuscular HGB CONC 31.4 g/dL (32.0-36.0); Mean Corpuscular Volume 89.1 fL (78.0-98.0); Mean Platelet Volume 8.1 fL (7.4-10.4); Platelet Count 231 thou/uL (130-400); RBC Distribution Width 13.3 % (11.5-14.5); Red Blood Cell (RBC) Count 2.81 mill/uL (4.20-5.40); White Blood Cell (WBC) Count 5.9 thou/uL (4.8-10.8)
[2019-10-22] MEDS: Furosemide 40 MG/4 ML VIAL SLOW IVP SCH ×2 (05:50→16:36)
[2019-10-22 05:55] LABS: Anion Gap 12 mmol/L (10-20); BUN (Urea Nitrogen) 48 mg/dL (9.8-20.1); Calc. Creatinine Clearance 23 mL/min (70-130); Calcium 9.6 mg/dL (7.8-10.44); Carbon Dioxide 30 mmol/L (23-31); Chloride 95 mmol/L (98-107); Estimated GFR-MDRD 21; Glucose 128 mg/dL (83-110); Sodium 133 mmol/L (136-145)
[2019-10-22] MEDS: Acetaminophen 325 MG TAB PO SCH ×5 (06:25→20:31)
[2019-10-22] MEDS: D5 1/2 NS w/20 mEq KCL 1,000 ML IV SCH (08:40)
[2019-10-22] MEDS: Docusate 100 MG CAP PO SCH ×2 (08:41→20:31)
[2019-10-22] MEDS: Cefdinir 300 MG CAP PO SCH (08:42)
[2019-10-22] MEDS: Amlodipine 5 MG TAB PO SCH (08:42)
[2019-10-22] MEDS: Levothyroxine Sodium 88 MCG TAB PO SCH (08:42)
[2019-10-22] MEDS: Fluticasone Propionate Nasal Spray 16 gm Bottle NASAL SCH ×2 (08:43→20:38)
[2019-10-22] MEDS: Carvedilol 3.125 MG TAB PO SCH ×2 (08:43→20:32)
--- NOTE | 2019-10-22 09:44 | PRG ---
DATE OF SERVICE: 10/22/2019 SUBJECTIVE: This morning, Savanna Stone is less short of breath. OBJECTIVE: VITAL SIGNS: Temperature pulse 62, respiratory rate 20, sats are 3 L, and blood pressure 165/65. CHEST: Decreased breath sounds bilaterally. CARDIAC: Normal S1, S2. No gallops. ABDOMEN: No masses. ASSESSMENT AND PLAN: Bilateral pleural effusion, left greater than right, status post thoracentesis; congestive heart failure; renal failure. She is relatively stable pulmonary rodriguez. We could probably discharge her home any time. Empiric antibiotics, comfort care. We will follow at a distance. Job ID: [id number]
[2019-10-22] MEDS ORDERED: EPOETIN ALFA-EPBX (ESRD) 4,000 UNIT/ML VIAL SC SCH (09:45)
--- NOTE | 2019-10-22 10:34 | PRG ---
DATE OF SERVICE: 10/22/2019 SERVICE: Renal Medicine. SUBJECTIVE: Ms. Stone is an 89-year-old white female who was admitted for acute respiratory distress. She was found to have pneumonia and CHF. She was clinically improved. She is on empiric antibiotics. In addition, the patient was also placed on diuretics. Renal function has been holding steady for the last several days. The patient voices no new complaints. Denies any chest pain or shortness of breath. OBJECTIVE: VITAL SIGNS: Blood pressure 165/65, heart rate 62, respiratory rate 20, temperature 97.9, and O2 sat is 95%. GENERAL: The patient is awake, alert, comfortable, not in distress. SKIN: Adequate turgor. HEENT: Slightly pale conjunctivae. Anicteric sclerae. NECK: No neck mass. No carotid bruits. No JVD. CHEST: No deformities. LUNGS: Clear breath sounds. No wheezing. No crackles. HEART: Normal sinus rhythm. No murmur. No gallops. No rubs. ABDOMEN: Globular, soft, nontender. No masses. EXTREMITIES: No edema, no deformities. MEDICATIONS: Medications of October 22, 2019, were reviewed. LABORATORY DATA: Laboratories of October 22, 2019; white count 5.9, hemoglobin 7.9. Sodium 133, potassium 4, chloride 95, carbon dioxide 30, BUN 48, creatinine 2.2, glucose 128, calcium 9.6. BNP is 1417. ASSESSMENT AND PLAN: 1. Congestive heart failure - currently on IV diuretics. Continue supportive care. No changes with the current diuretic regimen for the moment. 2. Chronic renal failure/acute kidney injury, stable. No indication for any emergent dialysis. GFR was noted at 21 mL/minute. 3. Pneumonia - status post IV antibiotics. 4. Anemia. We will start Epogen and iron supplementation. We will recheck basic metabolic profile and CBC in a.m. Job ID: [id number]
--- NOTE | 2019-10-22 14:08 | PDOC.PALCO ---
Palliative Care Consult - Consult Details Requesting Physician: Dr Mitchell Reason for Consult: goals of care, advance directives assistance, family support Family Members Present: Patient daughter - Pertinent HPI 89 year old female with history of heart failure, recent admission in September secondary to exacerbation. Transitioned to the home setting with assistance. She ad increase in weakness and shortness of breath, significant decrease in ability to perform ADL. Presented to emergency room for evaluation. Was noted to have elevated BNP greater than 1100, bilateral effusions on chest x-ray. Was admitted for management of chf exacerbation and lower lobe pneumonia. - Pertinent PMH CHF, Spinal stenosis, HTN, renal insufficiency, CVA, GERD, - Social History Smoking Status: Unknown if ever smoked Smoking: no tobacco exposure Alcohol Use: none Drug Use History: none Living Situation: other (lives in private home next to her daughter) - Medications MAR Reviewed: Yes - Allergies Allergies/Adverse Reactions: Allergies Allergy/AdvReac Type Severity Reaction Status Date / Time levofloxacin [From Levaquin] Allergy Verified 10/17/19 22:47 Penicillins Allergy Hives Verified 09/26/19 21:36 Sulfa (Sulfonamide Allergy Emesis Verified 09/26/19 21:36 Antibiotics) - Subjective Awake, alert, transitioned to O2 via NC. Daughter at bedside. Only complaint is insomnia last night that eventually resolved. - ROS Constitutional: alert, sleep changes, weakness ENT: other (Denies congestion, sort throat) Respiratory: shortness of breath with extertion Cardiology: other (negative for chest pain, discomfort) Gastrointestinal: other (no nausea at time of assessment, ) Musculoskeletal: arthritis/arthralgias - Objective Vital Signs: Vital Signs - Most Recent Temp Pulse Resp BP Pulse Ox 97.9 F 62 20 165/65 H 95 10/22/19 08:28 10/22/19 08:28 10/22/19 08:28 10/22/19 08:28 10/22/19 08:28 Palliative Performance Scale: 40 - Physical Exam Constitutional: NAD, ill appearing HEENT: moist MMs, sclera anicteric Cardiovascular: RRR Gastrointestinal: soft, non-tender Genitourinary: blackwell catheter Musculoskeletal: diffuse muscle atrophy Neurology: moves all 4 limbs Skin: cap refill <2 seconds, fragile Psychiatric: A&O x 3, normal mood - Problem List (1) Heart failure Code(s): I50.9 - HEART FAILURE, UNSPECIFIED Current Visit: Yes Status: Acute (2) Palliative care encounter Code(s): Z51.5 - ENCOUNTER FOR PALLIATIVE CARE Current Visit: Yes Status: Acute - Plan/Recommendations Plan: Goal of Care is to transition to home setting with hospice, focus on transition to management of symptoms and no longer treat multiple morbidities. Ms Stone has had a previous experience with [facility] and is electing to have an evaluation and hopeful transition home with [facility]. Referral sent via [employer] as per CM note. Daughter is considering paid caregivers to assist her mother when she is working. Emotional Support and Therapeutic listening. Education in relation to management of symptoms related to shortness of breath. Please also refer to Amanda Jane RNwet finisher wool notes in note section. [55] minutes spent on this encounter with >50% of the time in counseling and coordination of care. Thank you for this very appropriate consult.
[2019-10-22] MEDS ORDERED: Zolpidem Tartrate 5 MG TAB PO PRN (16:25)
[2019-10-22] MEDS: Ferrous Sulfate 325 MG TAB PO SCH (16:35)
[2019-10-22] MEDS: Atorvastatin Calcium 10 MG TAB PO SCH (20:32)
[2019-10-22] MEDS: Zolpidem Tartrate 5 MG TAB PO SCH (20:32)
[2019-10-23] MEDS: D5 1/2 NS w/20 mEq KCL 1,000 ML IV SCH (05:22)
[2019-10-23] MEDS: Furosemide 40 MG/4 ML VIAL SLOW IVP SCH (05:23)
[2019-10-23 05:39] LABS: #Eosinphils 0.3 thou/uL (0.0-0.7); #Lymphocytes 1.5 thou/uL (1.20-3.40); #Monocytes 0.7 thou/uL (0.11-0.59); #Neutrophils 3.7 thou/uL (1.40-6.50); %Basophils 0.2 % (0.0-1.0); %Eosinophils 5.2 % (0.0-10.0); %Lymphocytes 24.5 % (21.0-51.0); %Monocytes 10.5 % (0.0-10.0); %Neutrophils 59.7 % (42.0-75.0); Hemoglobin 8.9 g/dL (12.0-16.0); Mean Corpuscular HGB CONC 31.4 g/dL (32.0-36.0); Mean Corpuscular Hemoglobin 27.7 pg (27.0-31.0); Mean Corpuscular Volume 88.3 fL (78.0-98.0); Mean Platelet Volume 8.4 fL (7.4-10.4); Platelet Count 244 thou/uL (130-400); RBC Distribution Width 13.6 % (11.5-14.5); Red Blood Cell (RBC) Count 3.19 mill/uL (4.20-5.40); White Blood Cell (WBC) Count 6.2 thou/uL (4.8-10.8)
[2019-10-23 05:51] LABS: Anion Gap 13 mmol/L (10-20); BUN (Urea Nitrogen) 51 mg/dL (9.8-20.1); Calc. Creatinine Clearance 22 mL/min (70-130); Calcium 9.6 mg/dL (7.8-10.44); Carbon Dioxide 28 mmol/L (23-31); Chloride 96 mmol/L (98-107); Estimated GFR-MDRD 19; Glucose 117 mg/dL (83-110); Sodium 133 mmol/L (136-145)
[2019-10-23] MEDS: Acetaminophen 325 MG TAB PO SCH ×5 (06:25→21:17)
[2019-10-23] MEDS: Carvedilol 3.125 MG TAB PO SCH ×2 (08:39→20:04)
[2019-10-23] MEDS: Levothyroxine Sodium 88 MCG TAB PO SCH (08:39)
[2019-10-23] MEDS: Cefdinir 300 MG CAP PO SCH (08:39)
[2019-10-23] MEDS: Ferrous Sulfate 325 MG TAB PO SCH ×2 (08:39→18:24)
[2019-10-23] MEDS: Docusate 100 MG CAP PO SCH ×3 (08:39→20:04)
[2019-10-23] MEDS: Amlodipine 5 MG TAB PO SCH (08:39)
[2019-10-23] MEDS: Fluticasone Propionate Nasal Spray 16 gm Bottle NASAL SCH ×2 (08:40→20:06)
--- NOTE | 2019-10-23 09:28 | PRG ---
DATE OF SERVICE: 10/23/2019 SUBJECTIVE: Ms. Stone is an 89-year-old white female, who was initially admitted for acute respiratory distress. She was found to have combined CHF and pneumonia. We are seeing her for her acute kidney injury on top of chronic renal failure. Creatinine today was noted to be higher at 2.4. Yesterday, this was 2.2. Our plan is to hold off IV diuretics for the moment with this patient. The patient denies any chest pain or shortness of breath. OBJECTIVE: VITAL SIGNS: Blood pressure 176/65, heart rate 68, respiratory rate 16, temperature 98.2, O2 saturation 95%. GENERAL: Noted to be awake, alert, comfortable, not in distress. SKIN: Adequate turgor. HEENT: She has pinkish conjunctivae. Anicteric sclerae. NECK: No neck mass. No carotid bruits. No JVD. CHEST: No deformities. LUNGS: Clear breath sounds. HEART: Normal sinus rhythm. No murmurs, gallops, or rubs. ABDOMEN: Globular, soft, nontender. No masses. EXTREMITIES: No edema. No deformities. IMAGING DATA: Chest x-ray of October 21, 2019, shows CHF. LABORATORY DATA: Laboratories of October 23, 2019; white count 6.2, hemoglobin 8.9, hematocrit 28.2. Sodium 133, potassium 4, chloride 96, carbon dioxide 28, BUN 51, creatinine 2.41, glucose 117, calcium 9.6. BNP is 1417. ASSESSMENT AND PLAN: 1. Congestive heart failure, clinically asymptomatic-improving. We will discontinue IV Lasix at 40 mg IV q.12. We will maintain on p.o. Lasix at 40 mg tablet once a day. 2. Chronic renal failure, slightly higher creatinine at 2.4. Yesterday, this was 2.2. Adjust diuretics. The patient will be on Lasix 40 mg tablet once a day. 3. Pneumonia, on p.o. antibiotics. 4. Agree with current management. Job ID: [id number]
--- NOTE | 2019-10-23 12:54 | PDOC.FMACP ---
Advance Care Planning - Problem (1) Heart failure Status: Acute Code(s): I50.9 - HEART FAILURE, UNSPECIFIED (2) Palliative care encounter Status: Acute Code(s): Z51.5 - ENCOUNTER FOR PALLIATIVE CARE - Note Participants: patient, family, palliative care Summary: Palliative Care introduced Advanced Care Planning, Ms Stone was allowed an opportunity to decline. The diagnosis, prognosis and goals of care were discussed. Appropriate forms and documentation to accomplish the goals of care were discussed. MPOA complete/updated and copied given to patient/her daughter Susanna, and placed on chart. OOHDNAR complete. All questions were answered. The Palliative Care Team will be engaged to assist with completion of any outstanding forms that are needed. Time Spent (mins): 30
[2019-10-23] MEDS: Atorvastatin Calcium 10 MG TAB PO SCH (20:03)
[2019-10-23] MEDS: cloNIDine 0.1 MG TAB PO PRN (20:11)
[2019-10-23] MEDS: Zolpidem Tartrate 5 MG TAB PO SCH (20:13)
[2019-10-24] MEDS: Acetaminophen 325 MG TAB PO SCH (05:32)
[2019-10-24 06:27] LABS: #Eosinphils 0.3 thou/uL (0.0-0.7); #Lymphocytes 1.4 thou/uL (1.20-3.40); #Monocytes 0.8 thou/uL (0.11-0.59); #Neutrophils 4.2 thou/uL (1.40-6.50); %Basophils 0.2 % (0.0-1.0); %Eosinophils 4.2 % (0.0-10.0); %Lymphocytes 20.7 % (21.0-51.0); %Monocytes 11.4 % (0.0-10.0); %Neutrophils 63.5 % (42.0-75.0); Hemoglobin 8.8 g/dL (12.0-16.0); Mean Corpuscular HGB CONC 31.9 g/dL (32.0-36.0); Mean Corpuscular Hemoglobin 28.1 pg (27.0-31.0); Mean Corpuscular Volume 88.2 fL (78.0-98.0); Mean Platelet Volume 8.4 fL (7.4-10.4); Platelet Count 252 thou/uL (130-400); RBC Distribution Width 13.7 % (11.5-14.5); Red Blood Cell (RBC) Count 3.12 mill/uL (4.20-5.40); White Blood Cell (WBC) Count 6.6 thou/uL (4.8-10.8)
[2019-10-24 06:47] LABS: Anion Gap 13 mmol/L (10-20); BUN (Urea Nitrogen) 51 mg/dL (9.8-20.1); Calc. Creatinine Clearance 23 mL/min (70-130); Calcium 9.7 mg/dL (7.8-10.44); Carbon Dioxide 29 mmol/L (23-31); Chloride 95 mmol/L (98-107); Estimated GFR-MDRD 20; Glucose 98 mg/dL (83-110); Potassium 3.7 mmol/L (3.5-5.1); Sodium 133 mmol/L (136-145)
[2019-10-24] MEDS ORDERED: Furosemide 40 MG TAB PO SCH (07:30)
[2019-10-24] MEDS: Carvedilol 3.125 MG TAB PO SCH (08:31)
[2019-10-24] MEDS: Levothyroxine Sodium 88 MCG TAB PO SCH (08:31)
[2019-10-24] MEDS: Docusate 100 MG CAP PO SCH (08:31)
[2019-10-24] MEDS: Ferrous Sulfate 325 MG TAB PO SCH (08:31)
[2019-10-24] MEDS: Amlodipine 5 MG TAB PO SCH (08:31)
[2019-10-24] MEDS: Fluticasone Propionate Nasal Spray 16 gm Bottle NASAL SCH (08:33)
--- NOTE | 2019-10-24 09:36 | PRG ---
DATE OF SERVICE: 10/24/2019 SUBJECTIVE: Ms. Stone is an 89-year-old white female, who was admitted for congestive heart failure/pneumonia. She was diuresed and empirically treated with antibiotics. We are following her up for her acute kidney injury on top of her chronic renal failure. Adjustment with the Lasix was done due to the slightly higher creatinine yesterday. Creatinine was noted at that time at a value of 2.41, currently it is now 2.31. She voices no new complaints. She is comfortable. OBJECTIVE: VITAL SIGNS: Blood pressure 149/71, heart rate 59, respiratory rate 18, temperature 97.4, and O2 sat 92%. GENERAL: The patient is awake, alert, comfortable, not in overt distress. SKIN: Adequate turgor. HEENT: She has pinkish conjunctivae. Anicteric sclerae. No neck mass. No carotid bruits. No JVD. CHEST: No deformities. LUNGS: Decreased breath sounds. HEART: Normal sinus rhythm. No murmurs, no gallops, no rubs. ABDOMEN: Globular, soft, and nontender. No masses. EXTREMITIES: No edema. No deformities. MEDICATIONS: Medications of October 24, 2019, were reviewed. LABORATORY DATA: October 24, 2019; sodium 133, potassium 3.7, chloride 95, carbon dioxide 29, BUN 51, creatinine 2.31, GFR 20 mL/min, and calcium 9.7. BNP 1417. White count 6.6 and hemoglobin 8.8. ASSESSMENT AND PLAN: 1. Chronic renal failure - stable. No indication for any dialytic intervention. Continue supportive care. Continue current diuretic regimen. 2. Congestive heart failure, clinically much improved. We will continue Lasix at 40 mg tablet once a day. Agree with current management. The patient is to be discharged today. Hospice will be following up this patient at home. Job ID: [id number]
[2019-10-24 11:13] VITALS: BP 166/66; TEMP 98.2
--- NOTE | 2019-10-26 03:58 | PQF ---
LUCIANO ARITA MICHAEL E MD [id number] CLINICAL DOCUMENTATION CLARIFICATION FORM: POST DISCHARGE Addendum to original discharge summary date: ____ Late entry note date: __ DATE:10/26/2019 ATTN: Luigi Hassan Please exercise your independent, professional judgment in responding to the clarification form. Clinical indicators are provided on the bottom of this form for your review Please check appropriate box(es): [ ] Sepsis due to Community acquired Pneumonia [ ] Severe sepsis due to Community acquired Pneumonia with acute organ dysfunction of: (Examples: respiratory failure, encephalopathy, acute kidney failure, other) [ ] Septic Shock [ ] Localized infection without sepsis [ x ] Other diagnosis ___CHF [ ] Unable to determine In addition, please specify: Present on Admission (POA): [ X ] Yes [ ] No [ ] Unable to determine For continuity of documentation, please document condition throughout progress notes and discharge summary. Thank You. CLINICAL INDICATORS - SIGNS / SYMPTOMS / LABS Laboratory 10/14 WBC 10.0, Plt count 276, Neutrophils 77.9, Lactic acid 0.9 Blood culture 10/14 No growth in 5 days Vital signs 10/14 BP 163/71, Pulse 95, Resp 33, Temp 98.8 ED notes p 2 SIRS scoring: Yes patient did meet at least 1 criteria H&P p1 10/14 Dr Mitchell Chief complaint of dyspnea and Left lower lobe pneumonia PN p1 10/17 Dr Varghese Acute kidney injury on top of CKD PN p1 10/18 Dr Varghese Admitted for Acute Respiratory Failure RISK FACTORS H&P p1 10/14 89 year-old Female H&P p1 10/14 HTN H&P p1 10/14 CHF exacerbation H&P p1 10/14 Afib H&P p1 10/14 DM H&P p1 6/8 hx of Squamous cell cancer H&P p1 10/14 CKD H&P p1 10/14 LLL Pneumonia-Community acquired H&P p1 10/14 Chronic cystitis TREATMENTS: Admitted order to ICU 10/14JUL 12 IV Vancomycin 1 gm JUL 12 IVF NS 1L JUL 12 -IV Cefepime 2 gm JUL 12 Omnicef 300 mg oral Blood culture ordered 10/14 Respiratory panel 10/14 BiPap Pulmonology Consult 10/15 Jamie Muñoz (This form is maintained as a part of the permanent medical record) 2014 [employer]. All Rights Reserved [email or web address]
--- NOTE | 2019-10-27 15:29 | EKG ---
Test Reason : Blood Pressure : / mmHG Vent. Rate : 083 BPM Atrial Rate : 055 BPM P-R Int : 000 ms QRS Dur : 106 ms QT Int : 360 ms P-R-T Axes : 000 007 178 degrees QTc Int : 423 ms Atrial fibrillation Minimal voltage criteria for LVH, may be normal variant Anterior infarct , age undetermined Marked ST abnormality, possible lateral subendocardial injury Abnormal ECG Confirmed by BENNIE MYERS, TOMMY ([id number]), video effects editor BARTOLOME NUÑEZ ([id number]) on 10/27/2019 3:28:29 PM Referred By: Confirmed By:TOMMY AVERY MD
== END 2019-10-24 11:17 | disposition hospice, home (50) | DRG 291 ==
LOC: ERS 17:17 → IMCU/EMU 20:36 → T4-A 10-20 20:11
PROVIDERS: ADMIT Specialist; ATTEND Specialist
PROC: 5A09357 Assistance with Respiratory Ventilation, Less than 24 Consecutive Hours, Continuous Positive Airway Pressure (ICD-10-PCS; principal; 2019-10-15)
PROC: 30233N1 Transfusion of Nonautologous Red Blood Cells into Peripheral Vein, Percutaneous Approach (ICD-10-PCS; 2019-10-16)
PROC: 0T9B70Z Drainage of Bladder with Drainage Device, Via Natural or Artificial Opening (ICD-10-PCS; 2019-10-16)
PROC: 0W9B3ZZ Drainage of Left Pleural Cavity, Percutaneous Approach (ICD-10-PCS; 2019-10-17)
DX: I11.0 Hypertensive heart disease with heart failure (principal); J96.01 Acute respiratory failure with hypoxia; J18.9 Pneumonia, unspecified organism; E87.1 Hypo-osmolality and hyponatremia; N11.9 Chronic tubulo-interstitial nephritis, unspecified; Z51.5 Encounter for palliative care; Z66 Do not resuscitate; Z20.828 Contact with and (suspected) exposure to other viral communicable diseases; N17.9 Acute kidney failure, unspecified; J91.8 Pleural effusion in other conditions classified elsewhere; I50.43 Acute on chronic combined systolic (congestive) and diastolic (congestive) heart failure; E78.5 Hyperlipidemia, unspecified; E78.00 Pure hypercholesterolemia, unspecified; I48.91 Unspecified atrial fibrillation; E03.9 Hypothyroidism, unspecified; K21.9 Gastro-esophageal reflux disease without esophagitis; D63.1 Anemia in chronic kidney disease; F41.1 Generalized anxiety disorder; G89.29 Other chronic pain; M54.9 Dorsalgia, unspecified; I25.5 Ischemic cardiomyopathy; M48.00 Spinal stenosis, site unspecified; N18.9 Chronic kidney disease, unspecified; E11.9 Type 2 diabetes mellitus without complications; E55.9 Vitamin D deficiency, unspecified; G47.00 Insomnia, unspecified; R33.9 Retention of urine, unspecified; Z79.01 Long term (current) use of anticoagulants; Z91.19 Patient's noncompliance with other medical treatment and regimen; Z79.890 Hormone replacement therapy; Z88.1 Allergy status to other antibiotic agents; Z90.49 Acquired absence of other specified parts of digestive tract; Z85.828 Personal history of other malignant neoplasm of skin; Z86.73 Personal history of transient ischemic attack (TIA), and cerebral infarction without residual deficits; Z88.0 Allergy status to penicillin; Z88.2 Allergy status to sulfonamides; Z79.899 Other long term (current) drug therapy
CPT/HCPCS: 36415; 36430; 51701; 71045; 80048; 80053; 80061; 81003; 81015; 82150; 82945; 83605; 83615; 83880; 83986; 84157; 84443; 84478; 84484; 85025; 85060; 86850; 86900; 86901; 87040; 87070; 87086; 87116; 87205; 87206; 87635; 88112; 88305; 89051; 93005; 93010; 93798; 94660; 94760; 96365; 96375; 99292; J0692; J1642; J1940; J2001; J2060; J2270; J2405; J3370; J3480; J3490; J7050; P9016; P9047; Q5105; U0003